=== PATIENT | female | born 1955 | race Caucasian/White ===

== ENCOUNTER 2016-05-05 12:45 | Outpatient (CLI) | payer MEDICAID | END 2016-05-05 12:46 | disposition home or self-care (01) | DX: Z00.00 Encounter for general adult medical examination without abnormal findings (principal); G62.9 Polyneuropathy, unspecified; R60.9 Edema, unspecified; Z13.29 Encounter for screening for other suspected endocrine disorder; B19.20 Unspecified viral hepatitis C without hepatic coma ==

== ENCOUNTER 2017-05-26 13:24 | Emergency (ER) | payer MEDICAID ==
[2017-05-26 13:34] VITALS: BP 124/65
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
[2017-05-26] MEDS ORDERED: oxyCOD/ACETAMIN 5 MG/325 MG TABLET PO STA (15:03)
== END 2017-05-26 15:10 | disposition home or self-care (01) ==
LOC: ED 13:24
DX: H66.92 Otitis media, unspecified, left ear (principal); H72.92 Unspecified perforation of tympanic membrane, left ear; F17.200 Nicotine dependence, unspecified, uncomplicated
CPT/HCPCS: 99283; A9270

== ENCOUNTER 2018-02-11 18:10 | Outpatient (CLI) | payer MEDICAID | END 2018-02-11 23:59 | disposition home or self-care (01) | LOC: LAB.R 18:10 | PROVIDERS: ATTEND Nurse Practitioner | DX: L08.9 Local infection of the skin and subcutaneous tissue, unspecified (principal) | CPT/HCPCS: 87070; 87075; 87076; 87205 ==

== ENCOUNTER 2018-05-04 10:17 | Outpatient (CLI) | payer MEDICAID | END 2018-05-04 10:18 | disposition home or self-care (01) | LOC: LAB.F 10:17 | DX: B19.20 Unspecified viral hepatitis C without hepatic coma (principal) ==

== ENCOUNTER 2018-05-05 14:18 | Outpatient (CLI) | payer MEDICAID | END 2018-05-05 14:19 | disposition home or self-care (01) | LOC: LAB.F 14:18 | DX: B19.20 Unspecified viral hepatitis C without hepatic coma (principal) | CPT/HCPCS: 36415; 86317; 86704; 87340; 87389 ==

== ENCOUNTER 2018-05-11 09:39 | Outpatient (CLI) | payer MEDICAID ==
[2018-05-12 12:51] LABS: HEPATITIS B SURFACE ANTIGEN NON-REACTIVE (NON-REACTIVE)
[2018-05-12 15:07] LABS: HIV AG/AB 4TH GEN NON-REACTIVE (NON-REACTIVE)
== END 2018-05-11 09:40 | disposition home or self-care (01) ==
LOC: LAB.F 09:39
PROVIDERS: ATTEND Physician Assistant
DX: B19.20 Unspecified viral hepatitis C without hepatic coma (principal)
CPT/HCPCS: 36415; 86317; 86704; 87340; 87389

== ENCOUNTER 2018-08-05 10:05 | Outpatient (CLI) | payer MEDICAID ==
[2018-08-05 17:28] LABS: ALBUMIN 4.1 g/dL (3.2-5.5); ALBUMIN/GLOBULIN RATIO 1.2 (1.0-2.2); BILIRUBIN,TOTAL 0.9 mg/dL (0.2-1.0); CALCIUM 9.4 mg/dL (8.5-10.3); CREATININE 0.9 mg/dL (0.4-1.0); TOTAL PROTEIN 7.6 g/dL (6.7-8.2)
== END 2018-08-05 10:06 | disposition home or self-care (01) ==
LOC: LAB.F 10:05
PROVIDERS: ATTEND Physician Assistant
DX: B18.2 Chronic viral hepatitis C (principal)
CPT/HCPCS: 36415; 80053; 81599; 86803; 87522

== ENCOUNTER 2018-09-13 09:57 | Outpatient (CLI) | payer MEDICAID ==
--- NOTE | 2018-09-13 11:55 | Mammography Report ---
Reason: MASTALGIA Procedure Date: 09/13/2018 Accession Number: [id number] / [id number] Procedure: DIANA - Diagnostic Dig Bilat CPT Code: FULL RESULT: EXAM: Diagnostic Dig Bilat DATE: 09/13/2018 11:41 AM CLINICAL HISTORY: Left breast pain. TECHNIQUE: (B) - Bilateral CC and MLO views were obtained. Left ML images are obtained. COMPARISON: 01/28/2011. PARENCHYMAL PATTERN: (A) - The breast(s) demonstrate(s) scattered fibroglandular densities. FINDINGS: There are no suspicious masses, calcifications, or areas of distortion. IMPRESSION: Negative examination. BI-RADS category 1. RECOMMENDATION: (ANNUAL) - Recommend routine annual screening mammography. BI-RADS CATEGORY: (1) - Negative. STANDARD QUALIFYING STATEMENTS: 1. This examination was not reviewed with the aid of Computer-Aided Detection (CAD). 2. A negative or benign imaging report should not preclude biopsy if clinically suspicious findings are present. 3. Dense breasts may obscure an underlying neoplasm. 4. This examination was reviewed with the aid of 3D breast imaging (tomosynthesis).
== END 2018-09-13 09:58 | disposition home or self-care (01) ==
LOC: DI 09:57
PROVIDERS: ATTEND Registered Nurse
DX: N64.4 Mastodynia (principal)
CPT/HCPCS: 77066

== ENCOUNTER 2018-09-20 12:36 | Outpatient (CLI) | payer MEDICAID | END 2018-09-20 12:37 | disposition home or self-care (01) | LOC: LAB.S 12:36 | PROVIDERS: ATTEND Physician Assistant | DX: Z53.9 Procedure and treatment not carried out, unspecified reason (principal) ==

== ENCOUNTER 2018-09-26 09:28 | Outpatient (CLI) | payer MEDICAID ==
[2018-09-26 17:23] LABS: BASOPHILS # (AUTO) 0.1 10^3/uL (0.0-0.1); BASOPHILS % (AUTO) 1.6 %; EOSINOPHILS # (AUTO) 0.3 10^3/uL (0.0-0.7); EOSINOPHILS % (AUTO) 5.1 %; HGB - HEMOGLOBIN 15.1 g/dL (12.0-16.0); LYMPHOCYTES # (AUTO) 1.9 10^3/uL (1.5-3.5); MEAN CORPUSCULAR HEMOGLOBIN 29.4 pg (27.0-31.0); MEAN CORPUSCULAR HGB CONC 31.2 g/dL (32.0-36.0); MEAN CORPUSCULAR VOLUME 94.2 fL (81.0-99.0); MEAN PLATELET VOLUME 11.1 fL (7.9-10.8); MONOCYTES # (AUTO) 0.6 10^3/uL (0.0-1.0); MONOCYTES % (AUTO) 10.1 %; NEUTROPHILS # (AUTO) 2.9 10^3/uL (1.5-6.6); NEUTROPHILS % (AUTO) 49.9 %; PLT - PLATELET COUNT 221 10^3/uL (130-450); RED BLOOD COUNT 5.14 10^6/uL (4.20-5.40); RED CELL DISTRIBUTION WIDTH 13.4 % (12.0-15.0); WHITE BLOOD COUNT 5.7 x10^3/uL (4.8-10.8)
[2018-09-26 17:38] LABS: ALBUMIN 3.9 g/dL (3.2-5.5); ALBUMIN/GLOBULIN RATIO 1.2 (1.0-2.2); BILIRUBIN,TOTAL 0.7 mg/dL (0.2-1.0); CALCIUM 9.3 mg/dL (8.5-10.3); TOTAL PROTEIN 7.2 g/dL (6.7-8.2)
[2018-09-26 17:42] LABS: CHOLESTEROL 176 mg/dL; HDL CHOLESTEROL 58 mg/dL; LDL CHOLESTEROL,CALCULATED 105 mg/dL; LDL/HDL RATIO 1.8 (<4.4); VLDL CHOLESTEROL 13 mg/dL
[2018-09-26 17:56] LABS: HB2 TOTAL 16.5 g/dL; HEMOGLOBIN A1C 0.66 g/dL; HEMOGLOBIN A1C % 5.8 % (4.6-6.2)
[2018-09-27 12:01] LABS: HEPATITIS C ANTIBODY REACTIVE (NON-REACTIVE)
[2018-09-30 07:56] LABS: HCV RNA QNT <1.18 NOT DETECTED Log IU/mL (NOT DETECTED); HCV RNA QUANT RT PCR <15 NOT DETECTED IU/mL (NOT DETECTED)
== END 2018-09-26 09:29 | disposition home or self-care (01) ==
LOC: LAB.S 09:28
PROVIDERS: ATTEND Physician Assistant
DX: B18.2 Chronic viral hepatitis C (principal); R73.01 Impaired fasting glucose; Z13.29 Encounter for screening for other suspected endocrine disorder; Z81.1 Family history of alcohol abuse and dependence; F17.209 Nicotine dependence, unspecified, with unspecified nicotine-induced disorders
CPT/HCPCS: 36415; 80053; 80061; 83036; 83721; 84443; 85025; 86803

== ENCOUNTER 2018-12-30 13:46 | Outpatient (CLI) | payer MEDICAID | END 2018-12-30 13:47 | disposition home or self-care (01) | LOC: LAB.S 13:46 | PROVIDERS: ATTEND Physician Assistant | DX: B18.2 Chronic viral hepatitis C (principal); B19.20 Unspecified viral hepatitis C without hepatic coma | CPT/HCPCS: 36415; 80053; 87389; 87902 ==

== ENCOUNTER 2019-01-03 13:15 | Emergency (ER) | payer MEDICAID ==
[2019-01-03 13:28] VITALS: BP 150/80
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
[2019-01-03] MEDS ORDERED: HYDROcod/ACETAM 5/325 MG TABLET PO STA (15:46)
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
== END 2019-01-03 16:49 | disposition home or self-care (01) ==
LOC: ED 13:15
DX: S00.83XA Contusion of other part of head, initial encounter (principal); H43.392 Other vitreous opacities, left eye; W22.8XXA Striking against or struck by other objects, initial encounter; F17.200 Nicotine dependence, unspecified, uncomplicated; B18.2 Chronic viral hepatitis C
CPT/HCPCS: 36415; 70450; 70480; 80053; 86803; 87389; 99282; 99284; A9270

== ENCOUNTER 2019-01-03 14:38 | Outpatient (CLI) | payer MEDICAID ==
[2019-01-03 15:17] LABS: ALBUMIN 4.2 g/dL (3.2-5.5); ALBUMIN/GLOBULIN RATIO 1.3 (1.0-2.2); BILIRUBIN,TOTAL 0.9 mg/dL (0.2-1.0); CALCIUM 9.3 mg/dL (8.5-10.3); CREATININE 0.9 mg/dL (0.4-1.0); TOTAL PROTEIN 7.5 g/dL (6.7-8.2)
[2019-01-04 11:40] LABS: HEPATITIS C ANTIBODY REACTIVE (NON-REACTIVE)
[2019-01-04 15:26] LABS: HIV AG/AB 4TH GEN NON-REACTIVE (NON-REACTIVE)
[2019-01-05 19:36] LABS: HCV RNA QNT 1.32 Log IU/mL (NOT DETECTED); HCV RNA QUANT RT PCR 21 IU/mL (NOT DETECTED)
== END 2019-01-03 14:39 | disposition home or self-care (01) ==
LOC: LAB 14:38
PROVIDERS: ATTEND Physician Assistant
DX: B18.2 Chronic viral hepatitis C (principal); B19.20 Unspecified viral hepatitis C without hepatic coma
CPT/HCPCS: 36415; 80053; 86803; 87389

== ENCOUNTER 2020-10-15 08:00 | Outpatient (CLI) | payer MEDICAID ==
[2020-10-15 20:13] LABS: BASOPHILS # (AUTO) 0.1 10^3/uL (0.0-0.1); BASOPHILS % (AUTO) 1.2 %; EOSINOPHILS # (AUTO) 0.3 10^3/uL (0.0-0.7); EOSINOPHILS % (AUTO) 4.1 %; HCT - HEMATOCRIT 49.2 % (37.0-47.0); HGB - HEMOGLOBIN 15.7 g/dL (12.0-16.0); LYMPHOCYTES # (AUTO) 1.9 10^3/uL (1.5-3.5); LYMPHOCYTES % (AUTO) 31.2 %; MEAN CORPUSCULAR HGB CONC 31.9 g/dL (32.0-36.0); MEAN CORPUSCULAR VOLUME 93.9 fL (81.0-99.0); MEAN PLATELET VOLUME 11.9 fL (7.9-10.8); MONOCYTES # (AUTO) 0.6 10^3/uL (0.0-1.0); MONOCYTES % (AUTO) 9.6 %; NEUTROPHILS # (AUTO) 3.2 10^3/uL (1.5-6.6); NEUTROPHILS % (AUTO) 53.4 %; PLT - PLATELET COUNT 105 10^3/uL (130-450); RED BLOOD COUNT 5.24 10^6/uL (4.20-5.40); RED CELL DISTRIBUTION WIDTH 13.4 % (12.0-15.0)
[2020-10-15 20:21] LABS: SLIDE REVIEW? Indicated
[2020-10-15 20:29] LABS: ALBUMIN 4.5 g/dL (3.2-5.5); ALBUMIN/GLOBULIN RATIO 1.4 (1.0-2.2); BILIRUBIN,TOTAL 1.1 mg/dL (0.2-1.0); CALCIUM 9.6 mg/dL (8.5-10.3); CREATININE 0.8 mg/dL (0.4-1.0); POTASSIUM 4.5 mmol/L (3.5-5.0); TOTAL PROTEIN 7.8 g/dL (6.7-8.2)
[2020-10-15 21:00] LABS: RBC MORPHOLOGY (MULTIPLE) NORMAL APPEARANCE (NORMAL)
[2020-10-15 21:01] LABS: PLATELET ESTIMATE, MANUAL NORMAL (130-450,000) (NORMAL); PLATELET MORPHOLOGY PLATELET CLUMPING (NORMAL)
== END 2020-10-15 23:59 | disposition home or self-care (01) ==
LOC: LAB.S 08:00
PROVIDERS: ATTEND Emergency Medicine
DX: K92.2 Gastrointestinal hemorrhage, unspecified (principal)
CPT/HCPCS: 36415; 80053; 83690; 85025; 85610

== ENCOUNTER 2020-11-22 14:15 | Outpatient (CLI) | payer MEDICAID ==
[2020-11-22] MEDS ORDERED: IOVERSOL 320 100 ML VIAL IVP ONE (14:38)
[2020-11-22] MEDS ORDERED: IOVERSOL 320 50 ML VIAL ONE (14:39)
[2020-11-22 15:28] LABS: CREATININE 0.7 mg/dL (0.4-1.0)
== END 2020-11-22 14:16 | disposition home or self-care (01) ==
LOC: LAB 14:15
PROVIDERS: ATTEND Surgery
DX: R10.32 Left lower quadrant pain (principal); K92.2 Gastrointestinal hemorrhage, unspecified
CPT/HCPCS: 36415; 82565

== ENCOUNTER 2021-05-03 13:58 | Outpatient (CLI) | payer MEDICAID ==
--- NOTE | 2021-05-03 15:20 | CT Report ---
PROCEDURE: Low Dose Lung Cancer Screen INDICATIONS: TOBACCO USE TECHNIQUE: Noncontrast low-dose images were acquired from the pulmonary apices to the posterior costophrenic ang les. Multiplanar MIP reformats were then acquired. For radiation dose reduction, the following was used: automated exposure control, adjustment of mA and/or kV according to patient size. COMPARISON: Correlation is made with prior chest plain film radiograph 02/13/2014 FINDINGS: Image quality: Excellent. Lungs and pleura: No pulmonary nodules are seen. No focal infiltrates are seen. The central airways are patent. No pleural effusions or pneumothorax can be seen. Mediastinum: Heart size is normal. No pericardial effusion. No mediastinal adenopathy by size crit eria. Thoracic aorta and central pulmonary arteries are normal in size. Esophagus is normal in keit lizzeth. There is a small hiatal hernia. Bones and chest wall: No suspicious bony lesions. Age-appropriate degenerative changes are seen. N o vertebral body compression fractures. No axillary or supraclavicular adenopathy by size criteria. The thyroid is normal in size and there are no incidental findings. Abdomen: Visualized upper abdomen solid organs and bowel loops appear normal in the absence of contr ast. IMPRESSION: No pulmonary nodules are seen. Incidental note is made of: Small hiatal hernia Lung RADS category 1. Recommend annual low-dose CT chest screening examinations, as long as the patie nt meets the published screening criteria. Reviewed by: Humza Vogel MD on 05/03/2021 2:19 PM MARJORIE Approved by: Humza Vogel MD on 05/03/2021 2:19 PM MARJORIE Station ID: [id number]
== END 2021-05-03 13:59 | disposition home or self-care (01) ==
LOC: DI 13:58
PROVIDERS: ATTEND Registered Nurse
DX: Z12.2 Encounter for screening for malignant neoplasm of respiratory organs (principal); F17.209 Nicotine dependence, unspecified, with unspecified nicotine-induced disorders

== ENCOUNTER 2022-04-30 10:39 | Outpatient (CLI) | payer MEDICAID ==
--- NOTE | 2022-04-30 11:18 | CT Report ---
PROCEDURE: Low Dose Lung Cancer Screen INDICATIONS: TOBACCO USE DISORDER TECHNIQUE: Noncontrast low-dose axial images were acquired from the pulmonary apices to the posterior costophren ic angles. Multiplanar MIP reformats were then reconstructed. For radiation dose reduction, the follo wing was used: automated exposure control, adjustment of mA and/or kV according to patient size. COMPARISON: 05/03/2021 FINDINGS: Image quality: Good, allowing for low radiation dose Lungs and pleura:No consolidation or pleural effusion. Scattered scarring and atelectasis. No new or enlarging nodule. A few micronodules are stable, for example in the right . Mediastinum, heart, and esophagus: Mild thickening of the distal esophagus. Coronary calcifications. Normal heart size overall. Chest wall and thyroid: Unremarkable Upper abdomen: Limited low-dose images, no gross abnormality is identified. Bones: No acute or suspicious osseous finding. IMPRESSION: Lung RADS 2: Continue annual screening. Reviewed by: Shola Dahl MD on 04/30/2022 11:16 AM PDT Approved by: Shola Dahl MD on 04/30/2022 11:16 AM PDT Station ID: [id number]
== END 2022-04-30 10:40 | disposition home or self-care (01) ==
LOC: DI 10:39
PROVIDERS: ATTEND Registered Nurse
DX: Z12.2 Encounter for screening for malignant neoplasm of respiratory organs (principal); F17.290 Nicotine dependence, other tobacco product, uncomplicated

== ENCOUNTER 2022-07-17 14:14 | Outpatient (CLI) | payer MEDICAID ==
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
== END 2022-07-17 23:59 | disposition home or self-care (01) ==
LOC: DI.S 14:14
PROVIDERS: ATTEND Physician Assistant Medical
DX: M19.011 Primary osteoarthritis, right shoulder (principal)

== ENCOUNTER 2022-11-16 08:00 | Outpatient (CLI) | payer MEDICAID ==
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
== END 2022-11-16 23:59 | disposition home or self-care (01) ==
LOC: DI.WOS 08:00
PROVIDERS: ATTEND Orthopaedic Surgery
DX: S52.502D Unspecified fracture of the lower end of left radius, subsequent encounter for closed fracture with routine healing (principal)

== ENCOUNTER 2022-12-17 08:00 | Outpatient (CLI) | payer MEDICAID ==
--- NOTE | 2022-12-17 14:41 | XRAY Report ---
PROCEDURE: Wrist 3 View LT INDICATIONS: LEFT WRIST FRACTURE TECHNIQUE: 3 views of the wrist were acquired. COMPARISON: 11/16/2022. FINDINGS: Bones: Healing distal radius fracture with articular surface involvement and 2 mm step-off of the ar ticular surface. The bones are demineralized likely due to disuse osteopenia. Callus formation is not ed within the fracture indicating healing.. No suspicious bony lesions. Soft tissues: No suspicious soft tissue calcifications or masses. IMPRESSION: 1. Comminuted distal radius fracture. 2. Articular surface involvement of the fracture with 2 mm step-off of the articular surface which wa s not previously present. 3. Disuse osteopenia. Reviewed by: Jose Grossman on 12/17/2022 2:40 PM PDT Approved by: Jose Grossman on 12/17/2022 2:40 PM PDT Station ID: [id number]
== END 2022-12-17 23:59 | disposition home or self-care (01) ==
LOC: DI.WOS 08:00
PROVIDERS: ATTEND Orthopaedic Surgery
DX: S52.502D Unspecified fracture of the lower end of left radius, subsequent encounter for closed fracture with routine healing (principal); M85.88 Other specified disorders of bone density and structure, other site

== ENCOUNTER 2023-06-19 15:59 | Emergency (ER) | payer MEDICARE, MEDICAID ==
--- NOTE | 2023-06-19 16:17 | ED Physician Documentation ---
History of Present Illness - Stated complaint Stated Complaint: L SIDE PX/LEG PX - Chief complaint Chief Complaint: Ext Problem - History obtained from History obtained from: Patient, Family - Additonal information Additional information: Relatively healthy 67-year-old woman who still works in [email or web address] has had left lower quadrant pain on and off for about a year. There is no particular pattern to it, but today the pain is much worse and radiates into the back and left leg. She denies weakness, numbness, tingling, saddle anesthesia, fevers, bowel or bladder incontinence with this. Pain is intolerable though. She is never had it like this before. It is worse with sitting, position changes. Pain was too severe for her to drive today. 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) HEENT: Tonsil/Adenoidectomy - Present Medications Home Medications: Ambulatory Orders Medication Instructions Recorded Confirmed Amox/Clav 875/125 [Augmentin] 1 each PO TID #21 tablet 06/19/23 HYDROcod/ACETAM 5/325 [Ideal 5/325] 1 - 2 tab PO Q6H PRN #15 tablet 06/19/23 polyethylene glycoL 3350(BULK) 17 gm PO DAILY PRN #1 each 06/19/23 [Miralax] predniSONE [Deltasone] 20 mg PO [id number] #21 tab 06/19/23 - Allergies Allergies/Adverse Reactions: Allergies Allergy/AdvReac Type Severity Reaction Status Date / Time erythromycin base Allergy Mild Rash Verified 06/19/23 16:03 [Erythromycin Base] codeine AdvReac Unknown Verified 06/19/23 16:03 - Social History Does the pt smoke?: Yes Smoking Status: Current every day smoker Does the pt drink ETOH?: No Does the pt have substance abuse?: No - Immunizations Immunizations are current?: No Immunizations: TDAP >10years/unknown - POLST Patient has POLST: No PD ED PE NORMAL - Vitals Vital signs reviewed: Yes - General General: Alert and oriented X 3, Other (She appears uncomfortable and winces with motion.) - Abdomen Abdomen: Normal bowel sounds, Soft, Non tender - Back Back: No spinal TTP - Derm Derm: Normal color, Warm and dry - Extremities Extremities: No edema, No calf tenderness / cord, Other (The patient has equal and normal Achilles and patellar reflexes bilaterally. Normal sensation in all areas of the legs. Patient denies saddle anesthesia. Normal strength in flexion-extension at the ankles, knees, and flexion of the hips.) - Neuro Neuro: Alert and oriented X 3, Normal speech Results - Vitals Vitals: Vital Signs - 24 hr 06/19/23 06/19/23 06/19/23 16:03 16:50 17:26 Temperature 36.8 C Heart Rate 86 82 69 Respiratory 16 18 14 Rate Blood Pressure 160/90 H 124/25 L 144/76 H O2 Saturation 98 95 92 Oxygen O2 Source Room air - Labs Labs: Laboratory Tests 06/19/23 06/19/23 16:35 16:35 WBC 6.2 RBC 4.78 Hgb 13.8 Hct 43.3 MCV 90.6 MCH 28.9 MCHC 31.9 L RDW 13.3 Plt Count 212 MPV 10.9 H Neut # (Auto) 3.6 Lymph # (Auto) 1.7 [place] # (Auto) 0.5 Eos # (Auto) 0.3 Baso # (Auto) 0.1 Absolute Nucleated RBC 0.00 Nucleated RBC % 0.0 Sodium 139 Potassium 4.3 Chloride 105 Carbon Dioxide 27 Anion Gap 7.0 BUN 14 Creatinine 0.8 Estimated GFR (MDRD) 72 L Glucose 169 H Calcium 9.6 Total Bilirubin 0.7 AST 16 ALT 11 Alkaline Phosphatase 67 Total Protein 6.5 Albumin 4.2 Globulin 2.3 Albumin/Globulin Ratio 1.8 - Rads (name of study) CT of the abdomen pelvis showing mild diverticulitis, lumbar spine degenerative changes, and other incidental findings Relevant Findings:: Final report received, EMP independent interpretation of test CT of the lumbar spine demonstrates multiple degenerative changes. Relevant Findings:: Final report received, EMP independent interpretation of test PD Medical Decision Making - ED course ED course: 67-year-old woman presents with ongoing left lower quadrant pain now with more sciatic type symptoms. Differential would include vascular emergency, divertic ulitis, sciatica. Nothing in the history or physical to suggest spinal cord infection. Workup in the emergency department demonstrates normal CBC and CMP. CT scanning of the back and abdomen showing mild diverticulitis and significant lumbar degenerative disease. After the administration of IV Toradol and Dilaudid here she was feeling much better and was nontender on recheck. Departure - Departure Disposition: 01 Home, Self Care Clinical Impression: Diverticulitis, Sciatica of left side Condition: Good Record reviewed to determine appropriate education?: Yes Instructions: ED Sciatica, ED Diverticulitis, Diet Low Residue, Diet Clear Liquid Dc Prescriptions: Amox/Clav 875/125 [Augmentin] 1 each PO TID #21 tablet predniSONE [Deltasone] 20 mg PO [id number] #21 tab polyethylene glycoL 3350(BULK) [Miralax] 17 gm PO DAILY PRN #1 each PRN Reason: Constipation HYDROcod/ACETAM 5/325 [Ideal 5/325] 1 - 2 tab PO Q6H PRN #15 tablet PRN Reason: Pain Comments: You were seen today for left lower abdominal pain, your blood work was pretty normal but the CAT scans did show a lot of arthritis in your back and a mild case of diverticulitis. I would like you to do the clear liquid diet for 1 day, and then the low residue diet for 1 more day. See the attached instructions. Follow-up with your primary care physician this week for recheck. You probably will need a colonoscopy, it needs to be delayed for a few months for everything to heal, but after that it should be scheduled for sometime in the summer. You can get a referral for that from your primary care physician as well. I sent your prescriptions electronically to the [facility] in [place]. I am prescribing a short course of narcotic pain medication for you. These are potentially dangerous and addictive medications that should be used carefully. These medications may constipate you. Take an meja-wsl-sgvpmel stool softener (docusate) twice daily with plenty of water while taking these medications. If you go 24 hours without a bowel movement, take awkw-yzb-wtgssdd miralax, per package instructions. Do not drink or drive while taking these medications. If you received narcotic or sedating medications while in the emergency department, do not drive for 24 hours. Store this medication in a safe, secure place and out of reach of children. It is a violation of federal law to give or sell this medication to another person or to use in a manner other than prescribed. The ED will not refill narcotic prescriptions, including prescriptions lost or stolen. To dispose of unwanted medications: 1. [facility] provides a drop box for medication in pill form only (no liquids) 8:00 am to 4:30 p.m. Wednesday-Wednesday in the lobby of the [facility] [place], [address] Empty pills into ziplock bag before disposal. Call [phone] for information. 2.[employer] is a free service available to all [facility] residents. Go to [email or web address] Note that many narcotic pain relievers also contain Tylenol/acetaminophen. Please ensure that your total dose of acetaminophen from all sources does not exceed 3 g (3000 mg) per day. Forms: PCP List
[2023-06-19 16:42] LABS: BASOPHILS # (AUTO) 0.1 10^3/uL (0.0-0.1); BASOPHILS % (AUTO) 1.1 %; EOSINOPHILS # (AUTO) 0.3 10^3/uL (0.0-0.7); EOSINOPHILS % (AUTO) 5.5 %; HCT - HEMATOCRIT 43.3 % (37.0-47.0); HGB - HEMOGLOBIN 13.8 g/dL (12.0-16.0); LYMPHOCYTES # (AUTO) 1.7 10^3/uL (1.5-3.5); LYMPHOCYTES % (AUTO) 26.6 %; MEAN CORPUSCULAR HEMOGLOBIN 28.9 pg (27.0-31.0); MEAN CORPUSCULAR HGB CONC 31.9 g/dL (32.0-36.0); MEAN CORPUSCULAR VOLUME 90.6 fL (81.0-99.0); MEAN PLATELET VOLUME 10.9 fL (7.9-10.8); MONOCYTES # (AUTO) 0.5 10^3/uL (0.0-1.0); MONOCYTES % (AUTO) 7.9 %; NEUTROPHILS # (AUTO) 3.6 10^3/uL (1.5-6.6); NEUTROPHILS % (AUTO) 58.6 %; PLT - PLATELET COUNT 212 10^3/uL (130-450); RED BLOOD COUNT 4.78 10^6/uL (4.20-5.40); RED CELL DISTRIBUTION WIDTH 13.3 % (12.0-15.0); WHITE BLOOD COUNT 6.2 x10^3/uL (4.8-10.8)
[2023-06-19] MEDS: KETOROLAC 15 MG/ML VIAL IVP STA (16:43)
[2023-06-19] MEDS: HYDROmorphone 1 MG/ML CARPUJECT IVP STA (16:43)
[2023-06-19 16:58] LABS: ALBUMIN 4.2 g/dL (3.2-5.5); BILIRUBIN,TOTAL 0.7 mg/dL (0.2-1.0); CALCIUM 9.6 mg/dL (8.5-10.3); POTASSIUM 4.3 mmol/L (3.5-4.5)
[2023-06-19 17:03] LABS: ALBUMIN/GLOBULIN RATIO 1.8 (1.0-2.2); CREATININE 0.8 mg/dL (0.6-1.3); TOTAL PROTEIN 6.5 g/dL (6.4-8.9)
[2023-06-19] MEDS ORDERED: iohexoL-300 100 ML VIAL ONE (17:49)
--- NOTE | 2023-06-19 18:23 | CT Report ---
PROCEDURE: Abdomen/Pelvis W INDICATIONS: back/abd pain CONTRAST: 100ml omni 300 TECHNIQUE: After the administration of intravenous contrast, a CT scan of the abdomen and pelvis was performed. Images were recorded and evaluated at appropriate window settings. Reformats: coronal and sagittal. F or radiation dose reduction, the following was used: automated exposure control, adjustment of mA and /or kV according to patient size. COMPARISON: Correlation is made with the accompanying imaging. FINDINGS: Image quality: Diagnostic. Lower chest: Likely dependent atelectasis can be seen within the left lower lobe. A small hiatal jacob ia is incidentally noted. Liver: No solid mass. Gallbladder and biliary tree: Within normal limits. Spleen: No splenomegaly. Pancreas: No pancreatic ductal dilation. Adrenals: No adrenal nodule. Kidneys and ureters: No hydronephrosis. No renal cystic lesion which requires follow up. No solid mas s. Stomach, bowel and peritoneum: A normal appendix is seen, which is oriented superiorly, as on series 3 image 61. There is an apparent duodenal diverticulum, as on series 3 image 55 and on series 5 image 61 and on s eries 5 image 83.. There is mild to moderate colonic wall thickening seen within the proximal sigmoid colon. Diverticula formation can be seen within this region. No findings of perforation or abscess can be seen. No sign ificant free intraperitoneal fluid can be seen. The more proximal colon is within normal limits. No dilated loops of small bowel are seen. Lymph nodes: No central or retroperitoneal adenopathy. Vessels: No infrarenal aortic aneurysm. Atherosclerotic calcification is seen. PELVIS Reproductive organs: The uterus demonstrates an unremarkable appearance for age. No adnexal masses ar e seen. Bladder: No abnormal wall thickening, accounting for underdistention. Pelvic lymph nodes: No pelvic adenopathy by size criteria. Bones: Generalized lumbar spine degenerative change can be seen, including a central disc protrusion at the L1-L2 level. Please see the accompanying lumbar spine CT report. Other: No significant ventral or inguinal hernia. IMPRESSION: Likely mild diverticulitis, without findings of perforation or abscess. Lumbar spine degenerative change. Additional findings: Small hiatal hernia Likely right lower lobe atelectasis Apparent duodenal diverticulum Normal appendix Reviewed by: Humza Vogel MD on 06/19/2023 5:22 PM [facility] Approved by: Humza Vogel MD on 06/19/2023 5:22 PM [facility] Station ID: [id number]
--- NOTE | 2023-06-19 18:27 | CT Report ---
PROCEDURE: Lumbar Spine WO INDICATIONS: back/abd pain TECHNIQUE: Noncontrast 3 mm thick sections acquired from the T12 level to the sacrum. Sagittal and coronal refo rmats were constructed. For radiation dose reduction, the following was used: automated exposure co ntrol, adjustment of mA and/or kV according to patient size. COMPARISON: Correlation is made with the accompanying imaging. FINDINGS: Image quality: Excellent. Bones: No acute vertebral body compression fractures. No suspicious lytic or blastic bony lesions. Central spinal caliber is of normal overall caliber. No pars defects. Mild levoconvex scoliotic curvature is seen. Minimal retrolisthesis is seen at the L1-L2 level. Mini mal anterolisthesis is seen at L4-L5. T12-L1: Moderate loss of disc height is seen. Vacuum disc phenomenon is seen at this level. Mild d isc bulge is seen. No significant neural foraminal or central canal narrowing can be seen. L1-L2: Moderate loss of disc height is seen. Vacuum disc phenomenon is seen at this level. Endp late irregularity and sclerosis can be seen. Moderate disc bulge is seen, which is eccentric to the r ight. Bridging endplate osteophytes are seen on the right, as on series 11 image 29. There is a centr al disc protrusion seen at this level, as on series 7 image 28. There is at least moderate bilateral neuroforaminal narrowing seen, left worse than right. Moderate central canal narrowing is seen. L2-L3: The disc height is well-preserved. Mild to moderate disc bulge is seen. Moderate bilateral neural foraminal narrowing is seen. Mild central canal narrowing is seen. L3-L4: The disc height is well-preserved. Moderate disc bulge is seen at this level. There is a mild central disc protrusion. Mild facet hypertrophy is seen. There is mild right-sided and moderate left-sided neuroforaminal narrowing. Moderate central canal narrowing is seen. L4-L5: Minimal loss of disc height is seen. Moderate disc bulge is seen, which is eccentric to the left. There is moderate right-sided and prominent left-sided facet hypertrophy. Moderate bilateral ne uroforaminal narrowing can be seen, left worse than right. At least moderate central canal narrowing is seen. L5-S1: Minimal loss of disc height is seen. Mild disc bulge is seen. Mild to moderate facet hypert rophy is seen. There is moderate left-sided and mild right-sided neuroforaminal narrowing. No signifi cant central canal narrowing is seen. Soft tissues: No retroperitoneal masses or hematomas. Visualized aorta is normal in caliber. Ather osclerotic change is seen. IMPRESSION: Multiple levels of lumbar spine degenerative change can be seen, which are overall worst at the L1-L2 level. Reviewed by: Humza Vogel MD on 06/19/2023 5:25 PM [facility] Approved by: Humza Vogel MD on 06/19/2023 5:25 PM [facility] Station ID: [id number]
[2023-06-19] MEDS: iohexoL-300 100 ML VIAL IVP ONE (18:33)
[2023-06-19 18:45] VITALS: BP 147/94; O2SAT 100
[2023-06-19] MEDS: HYDROcod/ACET 5/325 Prepack 4 PO STA (18:46)
[2023-06-19] MEDS: AMOX/CLAV 875 MG/125 MG TABLET PO STA (18:46)
[2023-06-19] MEDS: predniSONE 20 MG TABLET PO STA (18:46)
== END 2023-06-19 19:08 | disposition home or self-care (01) ==
LOC: ED 15:59
DX: K57.32 Diverticulitis of large intestine without perforation or abscess without bleeding (principal); M47.816 Spondylosis without myelopathy or radiculopathy, lumbar region; M54.42 Lumbago with sciatica, left side; F17.200 Nicotine dependence, unspecified, uncomplicated
CPT/HCPCS: 36415; 72131; 74177; 80053; 85025; 96374; 99284; 99285; A9270; J1170; J7512; Q9967

== ENCOUNTER 2023-06-23 16:24 | Outpatient (CLI) | payer MEDICARE, MEDICAID | END 2023-06-23 23:59 | disposition critical access hospital (66) | LOC: EMS 16:24 | DX: M54.32 Sciatica, left side (principal); R26.2 Difficulty in walking, not elsewhere classified | CPT/HCPCS: A0425; A0429 ==

== ENCOUNTER 2023-06-23 16:50 | Emergency (ER) | payer MEDICARE, MEDICAID ==
--- NOTE | 2023-06-23 18:13 | ED Physician Documentation ---
PD HPI ABD PAIN - Stated complaint Stated Complaint: LEG PX - Chief complaint Chief Complaint: Back Pain - History obtained from History obtained from: Patient, EMS - History of Present Illness Timing - details: Gradual onset Pain level max: 8 Pain level now: 8 Quality: Aching, Pain Location: LLQ Associated symptoms: No: Fever, Nausea, Vomiting, Hematemesis, Diarrhea, Constipation, Melena, Hematochezia, Dysuria Recently seen: Not recently seen - Additional information Additional information: Patient is a 67-year-old female who presents to the emergency department with worsening left lower quadrant abdominal pain. She states that she was seen here 4 to 5 days ago and diagnosed with diverticulitis and sciatica. She states that the sciatica pain has been worsening today the left lower quadrant abdominal pain has also been worsening today. No fevers. No chills. Worse with movement, better with rest. No diarrhea or constipation. No blood in the stool. She has taken Vicodin for pain at home. No numbness or tingling in the leg. No loss of bowel or bladder control. Does not use IV drugs. No fevers. No falls. No trauma. 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) HEENT: Tonsil/Adenoidectomy - Present Medications Home Medications: Ambulatory Orders Medication Instructions Recorded Confirmed Amox/Clav 875/125 [Augmentin] 1 each PO TID #21 tablet 06/19/23 HYDROcod/ACETAM 5/325 [[place] 5/325] 1 - 2 tab PO Q6H PRN #15 tablet 06/19/23 polyethylene glycoL 3350(BULK) 17 gm PO DAILY PRN #1 each 06/19/23 [Miralax] predniSONE [Deltasone] 20 mg PO [id number] #21 tab 06/19/23 Meloxicam [Mobic] 7.5 mg PO BID PRN #20 tablet 06/23/23 oxyCODONE [Roxicodone] 5 - 10 mg PO Q6H PRN #20 tablet 06/23/23 MDD 6 - Allergies Allergies/Adverse Reactions: Allergies Allergy/AdvReac Type Severity Reaction Status Date / Time erythromycin base Allergy Mild Rash Verified 06/23/23 16:54 [Erythromycin Base] codeine AdvReac Unknown Verified 06/23/23 16:54 - Social History Does the pt smoke?: Yes Smoking Status: Current every day smoker Does the pt drink ETOH?: No Does the pt have substance abuse?: No - Immunizations Immunizations are current?: No Immunizations: TDAP >10years/unknown - POLST Patient has POLST: No PD ED PE NORMAL - Vitals Vital signs reviewed: Yes - General General: Alert and oriented X 3, No acute distress - HEENT HEENT: PERRL, Moist mucous membranes - Neck Neck: Supple, no meningeal sign, No bony TTP - Cardiac Cardiac: RRR, Strong equal pulses - Respiratory Respiratory: No respiratory distress, Clear bilaterally - Abdomen Abdomen: Soft, Non distended, Other - Back Back: No spinal TTP (No midline tenderness to palpation or percussion. No step- off or deformity.) - Derm Derm: Warm and dry - Extremities Extremities: No edema, No calf tenderness / cord - Neuro Neuro: Alert and oriented X 3, No motor deficit, No sensory deficit, Other (Normal bilateral lower extremity patellar and ankle jerk reflexes. Normal great toe extension bilaterally. no saddle anesthesia) - Psych Psych: Normal mood, Normal affect Results - Vitals Vitals: Vital Signs - 24 hr 06/23/23 06/23/23 06/23/23 16:58 19:26 21:31 Temperature 36.6 C Heart Rate 87 98 90 Respiratory 19 18 16 Rate Blood Pressure 142/87 H 154/89 H 166/92 H O2 Saturation 98 97 98 Oxygen O2 Source Room air - Labs Labs: Laboratory Tests 06/23/23 06/23/23 06/23/23 19:13 19:13 19:37 WBC 15.0 H RBC 5.38 Hgb 15.8 Hct 48.3 H MCV 89.8 MCH 29.4 MCHC 32.7 RDW 13.5 Plt Count 264 MPV 11.1 H Neut # (Auto) 11.5 H Lymph # (Auto) 1.9 [place] # (Auto) 1.3 H Eos # (Auto) 0.0 Baso # (Auto) 0.1 Absolute Nucleated RBC 0.00 Nucleated RBC % 0.0 Sodium 138 Potassium 3.8 Chloride 101 Carbon Dioxide 30 Anion Gap 7.0 BUN 18 Creatinine 0.8 Estimated GFR (MDRD) 72 L Glucose 125 H Calcium 9.4 Total Bilirubin 0.4 AST 12 ALT 12 Alkaline Phosphatase 68 Total Protein 6.6 Albumin 4.2 Globulin 2.4 Albumin/Globulin Ratio 1.8 Lipase 18 Urine Color DARK YELLOW Urine Clarity CLEAR Urine pH 6.5 Ur Specific [place] 1.025 Urine Protein NEGATIVE Urine Glucose (UA) NEGATIVE Urine Ketones NEGATIVE Urine Occult Blood NEGATIVE Urine Nitrite NEGATIVE Urine Bilirubin NEGATIVE Urine Urobilinogen 0.2 (NORMAL) Ur Leukocyte Esterase NEGATIVE Ur Microscopic Review NOT INDICATED Urine Culture Comments NOT INDICATED - Rads (name of study) CT abdomen and pelvis Relevant Findings:: Final report received, See rad report PD Medical Decision Making - ED course Complexity details: reviewed results, re-evaluated patient, considered differential (No cauda equina, no spinal epidural abscess, no fracture, no aortic dissection or evidence of aneursym rupture), d/w patient ED course: 67-year-old female presents to the emergency department with worsening left sided sciatica pain. Also some left lower quadrant abdominal pain. Had been treated for diverticulitis [address] scan does not show any worsening of the diverticulitis and the colonic thickening appears to have resolved. She had a CT scan of her lumbar spine 4 days ago as well. There is no neurological deficits. No evidence of cauda equina, epidural abscess. Pain well-controlled in the emergency department. We will prescribe oxycodone for pain at home. Continue the steroids. We will give her a walker to help take pressure off of her back when she ambulates. Recommend that she follow-up closely with her doctor for further care. Patient counseled regarding signs and symptoms for which I believe and urgent re-evaluation would be necessary. Patient with good understanding of and agreement to plan and is comfortable going home at this time This document was made in part using voice recognition software. While efforts are made to proofread this document, sound alike and grammatical errors may occur. Patient was also given a dose of IV Dilaudid here. Departure - Departure Disposition: 01 Home, Self Care Clinical Impression: Sciatica Qualifiers: Laterality: left Qualified Code(s): M54.32 - Sciatica, left side Condition: Good Instructions: ED Sciatica Follow-Up: your,doctor in 3-5 days [Other] Prescriptions: Meloxicam [Mobic] 7.5 mg PO BID PRN #20 tablet PRN Reason: Pain oxyCODONE [Roxicodone] 5 - 10 mg PO Q6H PRN #20 tablet MDD 6 PRN Reason: pain Comments: Continue the medications as previously prescribed. Follow-up with your doctor for further care. Your CT scan shows a resolution of your diverticulitis, however please finish the current antibiotics. Your prescriptions were sent to [facility] in [place]. I am prescribing a short course of narcotic pain medication for you. These are potentially dangerous and addictive medications that should be used carefully. These medications may constipate you. Take an yuud-dba-xjeyjek stool softener (docusate) twice daily with plenty of water while taking these medications. If you go 24 hours without a bowel movement, take luha-ojy-etbeaxa miralax, per [facility] instructions. Do not drink or drive while taking these medications. If you received narcotic or sedating medications while in the emergency department, do not drive for 24 hours. Store this medication in a safe, secure place and out of reach of children. It is a violation of federal law to give or sell this medication to another person or to use in a manner other than prescribed. The ED will not refill narcotic prescriptions, including prescriptions lost or stolen. To dispose of unwanted medications: 1. [facility] at [address] in [place] has a medication drop box. They accept prescription medications (in pill form) Wednesday through Wednesday 9:00 a.m. to 5:00 p.m. 2. [facility] accepts prescription medications (in pill form only) for disposal year round. Call for more information. 3. Contact the [facility] for the next [facility] sponsored prescription drug collection event. , [phone], or [phone]; Discharge Date/Time: 06/23/23 21:31
[2023-06-23 19:17] LABS: BASOPHILS # (AUTO) 0.1 10^3/uL (0.0-0.1); BASOPHILS % (AUTO) 0.4 %; EOSINOPHILS % (AUTO) 0.1 %; HCT - HEMATOCRIT 48.3 % (37.0-47.0); HGB - HEMOGLOBIN 15.8 g/dL (12.0-16.0); LYMPHOCYTES # (AUTO) 1.9 10^3/uL (1.5-3.5); LYMPHOCYTES % (AUTO) 12.8 %; MEAN CORPUSCULAR HEMOGLOBIN 29.4 pg (27.0-31.0); MEAN CORPUSCULAR HGB CONC 32.7 g/dL (32.0-36.0); MEAN CORPUSCULAR VOLUME 89.8 fL (81.0-99.0); MEAN PLATELET VOLUME 11.1 fL (7.9-10.8); MONOCYTES # (AUTO) 1.3 10^3/uL (0.0-1.0); MONOCYTES % (AUTO) 8.7 %; NEUTROPHILS # (AUTO) 11.5 10^3/uL (1.5-6.6); NEUTROPHILS % (AUTO) 76.8 %; PLT - PLATELET COUNT 264 10^3/uL (130-450); RED BLOOD COUNT 5.38 10^6/uL (4.20-5.40); RED CELL DISTRIBUTION WIDTH 13.5 % (12.0-15.0)
[2023-06-23] MEDS: HYDROmorphone 1 MG/ML CARPUJECT IM STA (19:18)
[2023-06-23] MEDS: SODIUM CHLORIDE 0.9% 1,000 ML IV STA (19:20)
[2023-06-23] MEDS: HYDROmorphone 1 MG/ML CARPUJECT IVP STA (19:20)
[2023-06-23 19:31] LABS: ALBUMIN 4.2 g/dL (3.2-5.5); ALBUMIN/GLOBULIN RATIO 1.8 (1.0-2.2); BILIRUBIN,TOTAL 0.4 mg/dL (0.2-1.0); CALCIUM 9.4 mg/dL (8.5-10.3); CREATININE 0.8 mg/dL (0.6-1.3); POTASSIUM 3.8 mmol/L (3.5-4.5); TOTAL PROTEIN 6.6 g/dL (6.4-8.9)
--- NOTE | 2023-06-23 19:50 | CT Report ---
PROCEDURE: Abdomen/Pelvis WO INDICATIONS: LLQ abd pain TECHNIQUE: A CT scan of the abdomen and pelvis was performed without the use of intravenous contrast. Images we re recorded and evaluated at appropriate window settings. Reformats: coronal and sagittal. For radiat ion dose reduction, the following was used: automated exposure control, adjustment of mA and/or kV ac cording to patient size. COMPARISON: 06/19/2023 FINDINGS: Image quality: Diagnostic. Lower chest: Bibasilar atelectasis more pronounced on the right. Small hiatal hernia. Liver: No contour-deforming mass. Gallbladder and biliary tree: No radiopaque stones or wall thickening. No biliary dilation. Spleen: No splenomegaly. Pancreas: No pancreatic ductal dilation. Adrenals: No adrenal nodule. Kidneys and ureters: No hydronephrosis. No renal cystic lesion which requires follow up. No solid mas s. Stomach, bowel and peritoneum: No bowel distension. No pathologic free fluid. Redemonstration of duod enal diverticulum. Diverticulitis redemonstrated. Previously seen segment of thickened sigmoid colon not as pronounced on today's study. No significant inflammatory changes. No evidence for bowel obstru ction. Normal appendix. Lymph nodes: No central or retroperitoneal adenopathy. Vessels: No infrarenal aortic aneurysm. Atherosclerosis. PELVIS Reproductive organs: Unremarkable. Bladder: No wall thickness, accounting for underdistention. Pelvic lymph nodes: No pelvic adenopathy by size criteria. Bones: No aggressive osseous abnormality. No acute compression fracture. Multilevel spondylosis. Other: No significant ventral or inguinal hernia. IMPRESSION: 1. CT abdomen and pelvis without acute abnormalities to explain patient's left lower quadrant abdomin al pain. 2. Colonic diverticulosis without evidence for acute diverticulitis. Previously seen segment of thick ened sigmoid colon is not appreciated on this examination. No significant inflammatory changes. 3. Normal appendix. 4. No evidence for urolithiasis or obstructive uropathy. 5. Small hiatal hernia. 6. Stable duodenal diverticulum. Other chronic findings as above Reviewed by: Elías Merida MD on 06/23/2023 7:48 PM PDT Approved by: Elías Merida MD on 06/23/2023 7:48 PM PDT Station ID: [id number]
[2023-06-23 20:12] LABS: BILIRUBIN,URINE NEGATIVE (NEGATIVE); GLUCOSE, URINE (UA) NEGATIVE (NEGATIVE); KETONES,URINE (UA) NEGATIVE (NEGATIVE); LEUKOCYTE ESTERASE, URINE NEGATIVE (NEGATIVE); NITRITE,URINE NEGATIVE (NEGATIVE); OCCULT BLOOD,URINE NEGATIVE (NEGATIVE); PH,URINE 6.5 PH (5.0-7.5); PROTEIN,URINE NEGATIVE (NEGATIVE); UROBILINOGEN,URINE 0.2 (NORMAL) E.U./dL (NORMAL)
[2023-06-23 20:27] LABS: CLARITY,URINE CLEAR (CLEAR)
[2023-06-23] MEDS: oxyCODONE 5 MG TABLET PO STA (21:13)
[2023-06-23 21:33] VITALS: BP 166/92; O2SAT 98
== END 2023-06-23 21:31 | disposition home or self-care (01) ==
LOC: EDUNIT# → ED 16:50
DX: M54.32 Sciatica, left side (principal); F17.200 Nicotine dependence, unspecified, uncomplicated; Z79.899 Other long term (current) drug therapy
CPT/HCPCS: 36415; 74176; 80053; 81003; 83690; 85025; 96372; 99283; 99284; A9270; J1170; 81001; 87086

== ENCOUNTER 2024-03-29 22:26 | Inpatient (IN) ==
--- NOTE | 2024-03-29 23:23 | ED Physician Documentation ---
PD HPI DYSPNEA Stated complaint Stated Complaint: SOA/COUGH Chief complaint Chief Complaint: Resp Additional information Additional information: BIBA. I had not yet started my shift when EMS arrived and thus was not present for EMS report. My HPI is from patient, patient's significant other (in ED at patient's bedside), and from ED slip cover seamstress note as well as verbal report from ED RN. Per ED slip cover seamstress note, patient presents for weakness, shortness of breath, c ough. However, on my HPI, patient tells me she is here because she drank a few beers tonight. She is vague throughout my attempt to ascertain further information regarding chief concerns/complaints. Her significant other expresses surprise that she is saying she drank tonight, does not think she did so. He says that patient has been complaining of shortness of breath and coughing over the past few days. He also says that the patient has been exhibiting confusion/disorientation since last night. Furthermore, he tells me the patient has had 2 recent ill contacts, both of whom had symptoms of URI/pneumonia (per his description). Patient does not offer complaint of chest pain; on review of systems, when I ask her about chest pain, she says she has been having chest pain over the past 1 week but in further discussion, it is increasingly unclear as to time frame, location (right/left/midline; she provides conflicting information during this HPI). Meds/Allgy Home Medications Ambulatory Orders Medication Instructions Recorded Confirmed hydrocodone 5 mg-acetaminophen 325 1 - 2 tab PO Q6H PRN Pain #15 tabs 06/19/23 03/30/24 mg tablet Allergies Allergies Allergy/AdvReac Type Severity Reaction Status Date / Time erythromycin base Allergy Mild Rash Verified 03/30/24 03:51 (Erythromycin Base) codeine AdvReac Unknown Verified 03/30/24 03:51 [facility] Social History Social History Smoking Status: Current every day smoker Living arrangement: At home Relationship: Do you feel safe in your home environment?: Yes Suffered physical, verbal, emotional, or financial abuse?: No History of Abuse: No Frequency: Occasional POLST Patient has POLST: No Exam Constitutional normal general appearance, no apparent distress and alert Respiratory breath sounds equal bilaterally and wheezing noted (expiratory wheezes) Cardiovascular heart rate abnormal (tachycardic), regular rhythm noted, no murmur, no JVD and no edema Gastrointestinal abdomen soft to palpation, nontender to palpation, nondistended and normoactive bowel sounds Psychiatry orientation abnormal (disoriented to place) awake, alert; quick and accurate with name. Initially tells me year is 1924, immediately corrects herself and accurate (2024). Knows she is in the emergency department, uncertain which one, then says "well, it's not [place]...I'm in [place]". When I tell her this is [place] and this is the [facility], she is surprised and says she still thinks this is [place] ER Skin skin color normal Results Vitals Vitals: Vital Signs - 24 hr 03/29/24 22:34 03/30/24 00:00 03/30/24 00:15 Temperature 37.5 C Temperature Source Oral Pulse Rate 121 H 162 H 136 H Respiratory Rate 20 22 Blood Pressure 127/75 123/72 O2 Saturation 99 98 25 L O2 Source Room air Room air If not protocol: Oxygen Flow, liters/minute Pain Intensity 7 7 03/30/24 00:17 03/30/24 00:22 03/30/24 00:27 Temperature Temperature Source Pulse Rate 135 H 147 H 148 H Respiratory Rate 24 Blood Pressure 116/78 105/66 96/73 O2 Saturation 94 O2 Source Room air Room air If not protocol: Oxygen Flow, liters/minute Pain Intensity 10 03/30/24 00:32 03/30/24 00:38 03/30/24 00:42 Temperature Temperature Source Pulse Rate 156 H 145 H 146 H Respiratory Rate Blood Pressure 114/71 99/68 116/76 O2 Saturation 91 L 91 L O2 Source Room air Room air If not protocol: Oxygen Flow, liters/minute Pain Intensity 10 03/30/24 00:58 03/30/24 01:03 03/30/24 01:08 Temperature Temperature Source Pulse Rate 149 H 105 H 127 H Respiratory Rate 19 Blood Pressure 130/89 125/62 111/83 O2 Saturation 91 L 92 O2 Source Nasal cannula Nasal cannula If not protocol: Oxygen Flow, liters/minute 2 2 Pain Intensity 03/30/24 01:13 03/30/24 03:48 03/30/24 04:33 Temperature Temperature Source Pulse Rate 123 H 107 H 97 Respiratory Rate 20 27 H Blood Pressure 121/80 121/60 126/61 O2 Saturation 94 91 L 93 O2 Source Nasal cannula Nasal cannula Nasal cannula If not protocol: Oxygen Flow, liters/minute 2 2 2 Pain Intensity 8 03/30/24 05:43 03/30/24 06:33 03/30/24 07:51 Temperature Temperature Source Pulse Rate 90 93 91 Respiratory Rate 16 16 18 Blood Pressure 117/57 L 112/72 125/60 O2 Saturation 92 92 88 L O2 Source Nasal cannula Nasal cannula Room air If not protocol: Oxygen Flow, liters/minute 2 2 Pain Intensity 03/30/24 08:21 03/30/24 09:00 Temperature Temperature Source Pulse Rate 99 98 Respiratory Rate 28 H 22 Blood Pressure 122/86 O2 Saturation 95 O2 Source Nasal cannula Nasal cannula If not protocol: Oxygen Flow, liters/minute 2 2 Pain Intensity 6 Oxygen O2 Source Nasal cannula EKG (time done) 22:36: EKG releavant findings:: EKG personally interpreted by author of this note. Relevant findings are: Rate: Rate (enter#) (119) and Tachy Rhythm: Sinus tachycardia and Normal P waves [place]: LAD Intervals: Normal IA QRS: QRS normal Ischemia: Normal ST segments Computer interpretation: Disagree with computer (no pvc) Labs Labs: Laboratory Tests 03/29/24 03/29/24 03/29/24 23:05 23:40 23:50 WBC 12.9 H RBC 4.80 Hgb 13.8 Hct 42.5 MCV 88.5 MCH 28.8 MCHC 32.5 RDW 13.8 Plt Count 156 MPV 11.3 H Neut # (Auto) 11.3 H Lymph # (Auto) 0.3 L [place] # (Auto) 1.0 Eos # (Auto) 0.0 Baso # (Auto) 0.1 Absolute Nucleated RBC 0.00 Nucleated RBC % 0.0 Sodium 136 Potassium 4.1 Chloride 101 Carbon Dioxide 23 Anion Gap 12.0 BUN 39 H Creatinine 1.4 H Estimated GFR (MDRD) 38 L Glucose 124 H Lactic Acid Calcium 9.6 Magnesium 2.1 Total Bilirubin 0.8 AST 15 ALT 14 Alkaline Phosphatase 94 B-Natriuretic Peptide 249 H Total Protein 7.2 Albumin 3.7 Globulin 3.5 Albumin/Globulin Ratio 1.1 Lipase < 10 L TSH 1.00 Urine Color YELLOW Urine Clarity HAZY Urine pH 6.0 Ur Specific [place] 1.020 Urine Protein 100 H Urine Glucose (UA) NEGATIVE Urine Ketones NEGATIVE Urine Occult Blood TRACE-LYSE Urine Nitrite NEGATIVE Urine Bilirubin NEGATIVE Urine Urobilinogen 0.2 (NORMAL) Ur Leukocyte Esterase NEGATIVE Urine RBC 0-5 Urine WBC 6-10 H Ur Squamous Epith Cells RARE Squamous Urine Bacteria Rare Urine Casts 3-5 WBC Casts Ur Microscopic Review INDICATED Urine Culture Comments NOT INDICATED Nasal Adenovirus (PCR) NOT DETECTED Nasal B. parapertussis DNA (PCR) NOT DETECTED Nasal Coronavir 229E PCR NOT DETECTED Nasal Coronavir HKU1 PCR NOT DETECTED Nasal Coronavir NL63 PCR NOT DETECTED Nasal Coronavir OC43 PCR NOT DETECTED Nasal Enterovir/Rhinovir PCR NOT DETECTED Nasal Influenza B PCR NOT DETECTED Nasal Influenza A PCR NOT DETECTED Nasal Parainfluen 1 PCR NOT DETECTED Nasal Parainfluen 2 PCR NOT DETECTED Nasal Parainfluen 3 PCR NOT DETECTED Nasal Parainfluen 4 PCR NOT DETECTED Nasal RSV (PCR) NOT DETECTED Nasal B.pertussis DNA PCR NOT DETECTED Nasal C.pneumoniae (PCR) NOT DETECTED Ra Human Metapneumo PCR NOT DETECTED Nasal M.pneumoniae (PCR) NOT DETECTED Nasal SARS-CoV-2 (PCR) NOT DETECTED Salicylates < 1.5 Urine Opiates Screen POSITIVE H Ur Buprenorphine Scrn NEGATIVE Ur Oxycodone Screen POSITIVE H Urine Methadone Screen NEGATIVE Acetaminophen 1.7 Ur Barbiturates Screen NEGATIVE Ur Tricyclics Screen NEGATIVE Ur Phencyclidine Scrn NEGATIVE Ur Amphetamine Screen POSITIVE H U Methamphetamines Scrn POSITIVE H U Benzodiazepines Scrn NEGATIVE Urine Cocaine Screen NEGATIVE U Cannabinoids Screen NEGATIVE Ur Drug Screen Comment CUTOFF CONC BELOW: Ethyl Alcohol < 10.0 03/30/24 04:23 WBC RBC Hgb Hct MCV MCH MCHC RDW Plt Count MPV Neut # (Auto) Lymph # (Auto) [place] # (Auto) Eos # (Auto) Baso # (Auto) Absolute Nucleated RBC Nucleated RBC % Sodium Potassium Chloride Carbon Dioxide Anion Gap BUN Creatinine Estimated GFR (MDRD) Glucose Lactic Acid 1.8 Calcium Magnesium Total Bilirubin AST ALT Alkaline Phosphatase B-Natriuretic Peptide Total Protein Albumin Globulin Albumin/Globulin Ratio Lipase TSH Urine Color Urine Clarity Urine pH Ur Specific [place] Urine Protein Urine Glucose (UA) Urine Ketones Urine Occult Blood Urine Nitrite Urine Bilirubin Urine Urobilinogen Ur Leukocyte Esterase Urine RBC Urine WBC Ur Squamous Epith Cells Urine Bacteria Urine Casts Ur Microscopic Review Urine Culture Comments Nasal Adenovirus (PCR) Nasal B. parapertussis DNA (PCR) Nasal Coronavir 229E PCR Nasal Coronavir HKU1 PCR Nasal Coronavir NL63 PCR Nasal Coronavir OC43 PCR Nasal Enterovir/Rhinovir PCR Nasal Influenza B PCR Nasal Influenza A PCR Nasal Parainfluen 1 PCR Nasal Parainfluen 2 PCR Nasal Parainfluen 3 PCR Nasal Parainfluen 4 PCR Nasal RSV (PCR) Nasal B.pertussis DNA PCR Nasal C.pneumoniae (PCR) Ra Human Metapneumo PCR Nasal M.pneumoniae (PCR) Nasal SARS-CoV-2 (PCR) Salicylates Urine Opiates Screen Ur Buprenorphine Scrn Ur Oxycodone Screen Urine Methadone Screen Acetaminophen Ur Barbiturates Screen Ur Tricyclics Screen Ur Phencyclidine Scrn Ur Amphetamine Screen U Methamphetamines Scrn U Benzodiazepines Scrn Urine Cocaine Screen U Cannabinoids Screen Ur Drug Screen Comment Ethyl Alcohol Rads (name of study) CXR: Relevant Findings:: Prelim report reviewed and See rad report PD Medical Decision Making ED course Complexity details: reviewed results, re-evaluated patient, considered differential and d/w patient ED course: Mild leukocytosis on otherwise unremarkable CBC (WBC 12.9). Respiratory PCR panel is negative for the viruses tested on this panel. ER abdominal panel notable for elevated BUN (39), creatinine (1.4), and low GFR (38). Normal TSH, mildly elevated BNP (249). Urine drug screen is positive for opiates, oxycodone, amphetamines, methamphetamines. Urinalysis with 6-10 WBC/hpf, negative squamous cells, only rare bacteria. Chest x-ray shows significant right upper lobe infiltrate as well as left basilar infiltrate. Both the patient and her boyfriend indicate to me that the patient is scheduled to have some sort of chest imaging later today to screen for malignancy. It is very much unclear from patient and her boyfriend whether the imaging is due to specific signs, symptoms, and/or recent abnormalities on studies such as chest x-ray. The patient tells me she has no history of COPD, emphysema, asthma. She does not use oxygen at home and she tells me she does not use/has not been prescribed inhalers nor nebulizers. I accessed the patient's records that were available via [employer] and those records indicate the patient is scheduled to have CT chest with renal-adjusted IV contrast to screen for malignancy due to her age combined with smoking (patient confirms to me she still smokes). I do not see any indication in the records in epic of abnormal chest x-ray findings, thus I then initiate treatment for presumed pneumonia. She is given IV zosyn and cipro. Was considering Rocephin and Zithromax; however, erythromycin is listed as one of her allergies and expanse. On initial ED presentation, patient is in ST on monitor (mostly 110 heart rate) but then went into atrial fibrillation with RVR (150s-170s) for which she is given 15mg IV cardizem followed by 20mg IV cardizem. Neither dose of cardizem had adequate effect (130s-150s heart rate). I then d/w patient my recommendation to cardiovert her (explained in layperson language), but during this discussion she spontaneously converted to NSR. Note that patient required 2 L nasal cannula oxygen throughout ED stay to maintain saturations at/above 90%. Patient is held in the ED for the remainder of my shift overnight due to no beds available at [facility] aside from ICU. Care of patient is turned over to Dr. Yi at end of my shift Discharge Plan Discharge Patient Disposition: [facility] DC/Xfer Condition: Fair Clinical Impression: Pneumonia Qualifiers: Pneumonia type: due to unspecified organism Laterality: bilateral Lung location: unspecified part of lung Qualified Code(s): J18.9 - Pneumonia, unspecified organism Prescriptions: No Action hydrocodone-acetaminophen 1 TAB tablet 1 - 2 tab PO Q6H PRN (Reason: Pain) Qty: 15 0RF Print Language: Bulgarian
[2024-03-29] MEDS: SODIUM CHLORIDE 0.9% 1,000 ML IV STA (23:45)
[2024-03-29 23:57] LABS: BASOPHILS # (AUTO) 0.1 10^3/uL (0.0-0.1); BASOPHILS % (AUTO) 0.6 %; EOSINOPHILS % (AUTO) 0.1 %; HCT - HEMATOCRIT 42.5 % (37.0-47.0); HGB - HEMOGLOBIN 13.8 g/dL (12.0-16.0); LYMPHOCYTES # (AUTO) 0.3 10^3/uL (1.5-3.5); LYMPHOCYTES % (AUTO) 2.6 %; MEAN CORPUSCULAR HEMOGLOBIN 28.8 pg (27.0-31.0); MEAN CORPUSCULAR HGB CONC 32.5 g/dL (32.0-36.0); MEAN CORPUSCULAR VOLUME 88.5 fL (81.0-99.0); MEAN PLATELET VOLUME 11.3 fL (7.9-10.8); MONOCYTES % (AUTO) 7.6 %; NEUTROPHILS # (AUTO) 11.3 10^3/uL (1.5-6.6); NEUTROPHILS % (AUTO) 88.2 %; PLT - PLATELET COUNT 156 10^3/uL (130-450); RED CELL DISTRIBUTION WIDTH 13.8 % (12.0-15.0); WHITE BLOOD COUNT 12.9 x10^3/uL (4.8-10.8)
[2024-03-30 00:05] LABS: B. PARAPERTUSSIS- RESP PCR PAN NOT DETECTED; B. PERTUSSIS- RESP PCR PANEL NOT DETECTED; C. PNEUMONIAE- RESP PCR PANEL NOT DETECTED; CORONAVIRUS 229E-RESP PCR NOT DETECTED; CORONAVIRUS HKU1-RESP PCR NOT DETECTED; CORONAVIRUS NL63-RESP PCR NOT DETECTED; CORONAVIRUS OC43-RESP PCR NOT DETECTED; HUMAN METAPNEUMOVIRUS NOT DETECTED; INFLUENZA A- RESP PCR PANEL NOT DETECTED; INFLUENZA B - RESP PCR PANEL NOT DETECTED; M. PNEUMONIAE- RESP PCR PANEL NOT DETECTED; PARAINFLUENZA VIRUS 1 NOT DETECTED; PARAINFLUENZA VIRUS 2 NOT DETECTED; PARAINFLUENZA VIRUS 4 NOT DETECTED; RHINOVIRUS/ENTEROVIRUS NOT DETECTED; RSV- RESP PCR PANEL NOT DETECTED; SARS-CoV-2 -RESP PCR PANEL NOT DETECTED
[2024-03-30 00:08] LABS: MAGNESIUM 2.1 mg/dL (1.7-2.3)
[2024-03-30] MEDS: diltiaZEM INJ 5 MG/ML VIAL IVP STA ×2 (00:12→01:00)
[2024-03-30 00:14] LABS: ACETAMINOPHEN 1.7 ug/mL; ALBUMIN 3.7 g/dL (3.2-5.5); ALBUMIN/GLOBULIN RATIO 1.1 (1.0-2.2); ALKALINE PHOSPHATASE 94 IU/L (42-121); ALT ALANINE AMINOTRANSFERASE 14 IU/L (10-60); AST ASPARTATE AMINOTRANSFERASE 15 IU/L (10-42); BILIRUBIN,TOTAL 0.8 mg/dL (0.2-1.0); BUN - BLOOD UREA NITROGEN 39 mg/dL (6-20); CALCIUM 9.6 mg/dL (8.5-10.3); CARBON DIOXIDE - CO2 23 mmol/L (21-32); CHLORIDE 101 mmol/L (101-111); CREATININE 1.4 mg/dL (0.6-1.3); ETOH - ETHANOL < 10.0 mg/dL; GFR - MDRD 38 (>89); GLUCOSE 124 mg/dL (74-104); LIPASE < 10 U/L (11-82); POTASSIUM 4.1 mmol/L (3.5-4.5); SODIUM 136 mmol/L (135-145); TOTAL PROTEIN 7.2 g/dL (6.4-8.9)
[2024-03-30 00:18] LABS: SALICYLATE < 1.5 mg/dL
[2024-03-30 00:25] LABS: BILIRUBIN,URINE NEGATIVE (NEGATIVE); GLUCOSE, URINE (UA) NEGATIVE (NEGATIVE); KETONES,URINE (UA) NEGATIVE (NEGATIVE); LEUKOCYTE ESTERASE, URINE NEGATIVE (NEGATIVE); NITRITE,URINE NEGATIVE (NEGATIVE); OCCULT BLOOD,URINE TRACE-LYSE (NEGATIVE); PROTEIN,URINE 100 mg/dL (NEGATIVE); UROBILINOGEN,URINE 0.2 (NORMAL) E.U./dL (NORMAL)
[2024-03-30 00:26] LABS: CLARITY,URINE HAZY (CLEAR)
[2024-03-30 00:37] LABS: AMPHETAMINE SCREEN,URINE POSITIVE (NEGATIVE); BACTERIA,URINE Rare /HPF (None Seen); BARBITURATE SCREEN,UR NEGATIVE (NEGATIVE); BENZODIAZEPINES SCREEN, URINE NEGATIVE (NEGATIVE); CASTS, URINE 3-5 WBC Casts /LPF; COCAINE SCREEN URINE NEGATIVE (NEGATIVE); METHADONE SCREEN, URINE NEGATIVE (NEGATIVE); METHAMPHETAMINES SCREEN, URINE POSITIVE (NEGATIVE); OPIATE SCREEN, URINE POSITIVE (NEGATIVE); OXYCODONE SCREEN, URINE POSITIVE (NEGATIVE); RBC,URINE 0-5 /HPF (0-5); SQUAMOUS EPITHELIAL CELL,UR RARE Squamous (<= Few); THC CANNABINOID SCREEN, URINE NEGATIVE (NEGATIVE); TRICYCLIC ANTIDEPRESSANT,URINE NEGATIVE (NEGATIVE)
[2024-03-30 00:38] LABS: BUPRENORPHINE SCREEN, URINE NEGATIVE (NEGATIVE)
--- NOTE | 2024-03-30 01:04 | XRAY Report ---
PROCEDURE: XR Chest 1V INDICATIONS: dyspnea TECHNIQUE: One view of the chest was acquired. COMPARISON: CT 04/30/2022 FINDINGS AND IMPRESSION: Dense consolidation is seen in the right upper lobe. Moderate opacity also seen in the left midlung. Findings suspicious for multifocal pneumonia. Surveillance radiograph or CT is needed to ensure ther e is no underlying mass following clinical treatment. Please note patient is also overdue for low dos e lung cancer screening if still eligible. No pleural effusion. Low lung volumes. Normal heart size. Aortic calcifications. Reviewed by: Shola Dahl MD on 03/30/2024 1:03 AM PST Approved by: Shola Dahl MD on 03/30/2024 1:03 AM PST Station ID: [id number]
[2024-03-30] MEDS: PIPERACILLIN/TAZOBACTAM 3.375 GM in SODIUM CHLORIDE 0.9% MINIBAG 100 ML IV STA (04:35)
[2024-03-30] MEDS: CIPROFLOXACIN 400 MG/200 ML 400 MG/200 ML BAG IV STA (05:12)
[2024-03-30] MEDS: ALBUTEROL NEB 2.5 MG/3 ML INH STA (08:18)
[2024-03-30] MEDS: ACETAMINOPHEN 325 MG TABLET PO STA (11:33)
[2024-03-30] MEDS: KETOROLAC 15 MG/ML VIAL IVP STA (11:34)
--- NOTE | 2024-03-30 13:01 | HISTORY & PHYSICAL EXAMINATION ---
Chief Complaint <Mary Payne - Last Filed: 03/30/24 15:13> Chief Complaint Chief Complaint: weakness, shortness of breath, coughing History of Present Illness <Mary Payne - Last Filed: 03/30/24 15:13> Admitted From Admitted From:: Emergency Department History Obtained From History obtained from: Self, son Isela, boyfriend Medhat History of Present Illness HPI Comment/Other: Nancy is a 68-year-old female who presents to ED today due to progressively worsening cough, shortness of breath, and fatigue. Information is provided by Nancy, her adult son Isela, and her boyfriend Medhat. Some information from son/boyfriend is contradictory to her initial reports, but she typically agrees with their information more than what she initially said. She is pleasant, alert and oriented x4, talkative, and cooperative. She appears uncomfortable due to being excessively warm and back discomfort due to hospital bed. When asked why she is here at the ED, she pointed to her son to indicate that he brought her. Her son reports finding her "on the toilet for an hour," slumped over, lethargic, confused, and generally "out of it". Both deny loss of consciousness and report she was awake, with eyes open and able to communicate when he found her, but she was unable to stand on her own due to weakness. He states he had to assist her with standing and with putting her underpants back on. She denies that she was on the toilet for that long, but her son insists the duration was "at least" one hour. She states she was only urinating, did not have or attempt to have a bowel movement, no nausea or vomiting, and no abdominal cramping or discomfort. She states she is here because she has been "sick for a while". She describes this as "hardly moving", decreased appetite, coughing, and just "feeling bad." She has had progressively worsening cough, shortness of breath, disequilibrium, and fatigue for several months. She is unable to pinpoint exactly how long, but does note symptoms are worsening. She states the last 1 week has been especially bad, with increased difficulty breathing, cough with phlegm, and fever. Her son reports fever of 101.5F last night. She has chronic sinus problems and uses a generic nasal spray daily, but does not know what this medication is. She notes she has not needed any nasal spray for 1 week, her sinuses/nose have been uncharacteristically clear. She describes her disequilibrium as "veering to the right" for the last 2 months. She also has chronic back pain, left sided low back pain with sciatica, and right shoulder pain. She denies vertigo, hearing change, headache, hemoptysis, sinus pain or pressure, new or changing myalgias or arthralgias. She describes her mood as "grumpy" and laughingly says she has been grumpy her entire life. She also states she is scared and worrying a lot about her health, especially due to her PCP's recommendation for low-dose CT screening for lung cancer due to smoking history. She is very concerned that she may have cancer or other illness because this screening exam was recommended. She states she usually "sleeps hard" but lately has been sleeping 2-3 hours, waking up, then sleeping for 2-3 more hours. She is unsure why she is waking at night. She states she has a long history of depression and anxiety, which she does not currently take medication for. She denies cardiac or pleuritic chest pain, however she does have musculoskeletal chest pain due to her dog tugging at its leash about 1 week ago. The dog pulled its leash which jolted her right arm, aggravating her chronic right shoulder pain and causing chest muscle pain. She denies any changing or new chest pain, and denies pain radiation to arms or neck. She is a heavy smoker, 2 packs per day since age 17, but reports she stopped smoking 2-3 days ago due to increased coughing and difficulty breathing. She drinks an average of 2-3 [place] Hard Lemonades per night. She denies marijuana use in any form. She initially denies illicit drug use, but upon correction by her boyfriend, admits to smoking methamphetamine with a pipe as needed for depression, anxiety, and pain. It is unclear how frequently she does this. She admits to smoking methamphetamine last night due to feeling "shitty and bad." Upon clarification she explains she feels bad due to chronic depression, anxiety, and pain, and states she attempts to self medicate with substances. She lives in [place] with her adult son Isela and grandson Carson, along with their dogs. Her adult daughter Drew lives in [place]. It is unclear if her boyfriend Medhat lives with them as well, or if he just stays over frequently. 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 She reports only taking oxycodone-acetaminophen once or twice daily due to chronic back pain. She has been taking OTC ibuprofen for the last few days per her son's advice. She denies any other prescription or over the counter medications. Her PCP is Dr. Gant at the [facility] in [place], [place]. Meds/Allgy <Mary Payne - Last Filed: 03/30/24 15:13> Home Medications Ambulatory Orders Medication Instructions Recorded Confirmed hydrocodone 5 mg-acetaminophen 325 1 - 2 tab PO Q6H PRN Pain #15 tabs 06/19/23 03/30/24 mg tablet Allergies Allergies Allergy/AdvReac Type Severity Reaction Status Date / Time erythromycin base Allergy Mild Rash Verified 03/30/24 03:51 (Erythromycin Base) codeine AdvReac Unknown Verified 03/30/24 03:51 PFSH <Mary Payne - Last Filed: 03/30/24 15:13> Family History Family History (Updated 03/30/24 @ 14:51 by Dev Cai MD) Mother Cancer Social History Social History Smoking Status: Current every day smoker If you are a former smoker, when did you quit? (Date/Year): 03/29/24 Number of Years Smoked: 50 How many cigarettes a day do you smoke? (20 cigarettes=1 Pk): 20 Second hand tobacco smoke exposure: Yes Do you dip or chew tobacco?: No Do you vape?: No Patient requests smoking cessation consult: No Initiate information on smoking cessation: No Living arrangement: At home Relationship: Spouse Level: Independent Do you feel safe in your home environment?: Yes Suffered physical, verbal, emotional, or financial abuse?: No History of Abuse: No Frequency: Occasional Substance Use: cannabis (any form) POLST Patient has POLST: No Review of Systems <Mary Payne - Last Filed: 03/30/24 15:13> Constitutional Reports: Fatigue, Fever, Malaise, Weakness, Poor appetite and Change in sleep pattern Eyes Denies: Change in vision Ears, nose, mouth, and throat Reports: Nasal congestion; Denies: Ear pain, Change in hearing or Vertigo Cardiovascular Reports: chest pain (muscular), lightheadedness and shortness of breath with exertion; Denies: edema, swelling of feet/ankles or Syncope Respiratory Reports: Shortness of breath, Cough, Sputum production, Wheezing and SOB at rest; Denies: Pleuritic pain, Pain on inspiration or Coughing up blood Gastrointestinal Denies: Abdominal pain, Nausea or Vomiting Genitourinary Denies: Painful urination, Urinary frequency, Urinary urgency, Urinary incontinence, Blood in urine or Flank pain Musculoskeletal Reports: Back pain and Muscle pain; Denies: Limited range of motion Integumentary/Breast Reports: Dryness (dry skin on both feet); Denies: Rash Neurological Reports: General weakness, Dizziness and Confusion; Denies: Headache or Vertigo Psychiatric Reports: Depression, Anxiety and Irritability Endocrine Reports: Fatigue Hematologic/Lymphatic Denies: Easy bruising Allergic/Immunologic Reports: Wheezing <Mary Payne - Last Filed: 03/30/24 15:13> Prior Level of Functionality: Fully functional, no assistance needed for activities of daily living. Exam <Mary Payne - Last Filed: 03/30/24 15:13> Constitutional no apparent distress, abnormal body habitus (obese) and alert HENMT normocephalic, head/scalp atraumatic and hearing grossly normal bilaterally Eyes PERRL, EOMs intact bilaterally and no scleral icterus Neck/C-Spine visual inspection normal, trachea midline and cervical full ROM noted Lymph no lymphadenopathy noted and no lymphedema noted Chest inspection of chest normal and palpation of chest normal Respiratory breath sounds equal bilaterally, abnormal respiratory effort (speaking in full sentences, pauses between sentences to catch her breath), wheezing noted (expiratory wheezes) and (scattered wheezes) and no retractions Cardiovascular normal heart rate noted, no murmur, no JVD, peripheral pulses 2+ throughout and no edema Gastrointestinal abdomen normal to inspection, abdomen soft to palpation and nontender to palpation Genitourinary no CVA tenderness Back/Pelvis spine normal to inspection Extremities abnormal to inspection (right hand with nonpitting edema (normal per patient)), full ROM, no joint enlargement and no deformity Neurology heel seat sander II-XII intact and no movement abnormality noted Psychiatry oriented x3, cooperative, affect normal and psychomotor activity normal Skin skin color abnormal (flushed), no jaundice and nails abnormality noted (fungal infection of all toenails. No clubbing, cyanosis, or pitting.) bilateral feet with dry, cracked skin. No edema, wounds, or abrasions. Sepsis Event Note (H) <Mary Payne - Last Filed: 03/30/24 15:13> Evaluation Current Stage of Sepsis: Sepsis Possible source of Sepsis: positive Pulmonary Sepsis Criteria Sepsis Criteria: Recorded Heart Rate greater than 90 bpm, Recorded Respiratory Rate greater than 20, Respiratory: Increasing oxygen requirements and WBC count greater than 12,000 or less than 4000 Conclusion/Plan <Mary Payne - Last Filed: 03/30/24 15:13> Problem List (1) Community acquired pneumonia: Plan: Infiltrates seen on chest XR in right upper lobe and left lower lobe. Patient with spO2 95% on 2L oxygen with nasal cannula. Cough and sputum production, fever, and shortness of breath consistent with pneumonia. At higher risk of complication due to heavy current cigarette smoking and current methamphetamine smoking. High suspicion for undiagnosed COPD due to chronic cough and extensive smoking history. We will treat with IV steroid and duoneb treatment to improve breathing. We will change patient's antibiotics to preferred Rocephin and azithromycin. Her prior erythromycin allergy was mild rash during childhood. Will monitor closely for signs of allergic response. Qualifiers: Laterality: unspecified laterality Qualified Code(s): J18.9 - Pneumonia, unspecified organism (2) Sepsis: Plan: Patient meets sepsis criteria due to tachycardia at 108bpm, tachypnea at 28 rpm, leukocytosis at 12.3, and pneumonia. Treating with two antibiotics for CAP, will monitor for progression. Qualifiers: Sepsis acute organ dysfunction status: without acute organ dysfunction Sepsis type: sepsis due to unspecified organism Qualified Code(s): A41.9 - Sepsis, unspecified organism (3) Acute kidney injury: Plan: Creatinine creased to 1.4. This should improve with IV fluids. Will monitor for any changes in urine output or electrolytes. (4) Tobacco dependence: Plan: 102 pack years, currently smoking 2 packs of cigarettes per day. (5) Methamphetamine use: Plan: Regular methamphetamine use smoked through pipe. UDS positive for methamphetamine at ED admission. Lab Results Lab results reviewed: Yes 03/29/24 23:50 03/29/24 23:50 Diagnostic Imaging Results Diagnostic Imaging Results: positive Final report reviewed EKG Results EKG Interpreted Independently: Yes EKG Comparison: No prior EKG EKG Findings: Sinus tachycardia without PVC or evidence of infarction. Rate 119, AL 134, QRS 85. <Dev Cai MD - Last Filed: 03/30/24 15:25> Problem List (1) Community acquired pneumonia: (2) Sepsis: (3) Acute kidney injury: Plan: Creatinine increased to 1.4. This should improve with IV fluids. Will monitor for any changes in urine output or electrolytes. (4) Tobacco dependence: (5) Methamphetamine use: Core Measures <Mary Payne - Last Filed: 03/30/24 15:13> Anticipated LOS I expect patient to be DC'd or transferred within 96 hours.: Yes DVT/VTE - Prophylaxis VTE/DVT Device ordered at admit?: No Not Ordered - Medical Reason: Not tolerated (chronic left LE paresthesia worsened by contact) VTE/DVT Prophylaxis med ordered at admit?: Yes Stroke - Rehab Assessment Rehab services assessment to be ordered?: No Not Ordered - Medical Reason: Not indicated AMI - Statin at Admit Aspirin Prescribed on Admit: No Not Ordered - Medical Reason: Not indicated Family History <Mary Payne - Last Filed: 03/30/24 15:13> Family History Family History: Mother: Cancer (Lung cancer, diagnosed at age 57, heavy smoker)
[2024-03-30] MEDS ORDERED: ONDANSETRON ODT 4 MG TABLET TL PRN (13:26)
[2024-03-30] MEDS ORDERED: SODIUM CHLORIDE FLUSH 0.9% 10 ML SYRINGE IVP PRN (13:26)
[2024-03-30] MEDS: HYDROcod/ACETAM 5/325 MG TABLET PO PRN (14:00)
[2024-03-30] MEDS ORDERED: iohexoL-300 100 ML VIAL ONE (14:10)
--- NOTE | 2024-03-30 14:57 | PHARMACY PROGRESS NOTE ---
Best Possible Medication History Admit Date and Time: 03/30/24 1313 Home Medications Medication Instructions Recorded Confirmed Type hydrocodone 5 mg-acetaminophen 325 1 - 2 tab PO Q6H PRN Pain #15 tabs 06/19/23 03/30/24 Rx mg tablet Processed by: Nursing Medications reviewed in ED?: Yes Medication History completed: Yes Patient Interview: Completed Secondary Source(s): Pharmacy records and Insurance records [facility] Statement: As the person ultimately responsible for medication therapy, providers are able to order a medication from an existing home medication list in [facility] via the "Reconcile Routine" prior to Confirmation of that medication by direct support worker. Such practice is discouraged except when the physician, in their clinical judgment, deems that a medical need exists for a medication without regard to previous use.
--- NOTE | 2024-03-30 15:13 | PT Plan of Care ---
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 Indep at baseline and lives in [facility] with family and SO. Upon PT eval, pt on 3.5L O2, sats 95-97% at rest and with activity. Pt is Rico overall for transfers and short distance ambulation in room. Pt presents with good overall strength and good indep with functional mobility. Does not appear to have much need for skilled acute PT services but given recent onset of SOA and pt reported " weakness" PT will return tomorrow for progression of mobility and ambulation distance. When medically clear, PT anticipates pt will dc to prior living situation without further rehab need. Goals Improve bed mobility to: Independent Improve supine to sit to: Independent Improve sit to stand to: Independent Improve pivot transfer ability Independent to: Improve sit to supine to: Independent Improve gait ability to: Ind Assistive Device Used: None PT Plan of Care Duration 1-2 more sessions Discharge Recommendations Discharge Location Previous Living Situation Other none anticipated Transport Needs at Discharge Personal vehicle
--- NOTE | 2024-03-30 15:28 | OT Plan of Care ---
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 Met on 3.5 L NC o2 - Spo2 above 90% during session. Performed functional mobility and ADL's with INDP no use of AD - Slowed pace and quick to fatigue. Pt with no acute skilled OT need at this time. Rec mobility with nursing prn. D/c home with family assist when medically stable. Plan Treatment Frequency Evaluation only, no further O.T. -Discharge Recommendations Discharge Location Previous Living Situation Transport Needs at Discharge Personal vehicle
[2024-03-30] MEDS: iohexoL-300 100 ML VIAL IVP ONE (15:34)
[2024-03-30] MEDS: IPRATROPIUM/ALBUTEROL 3 ML NEB INH SCH (15:51)
--- NOTE | 2024-03-30 16:46 | CT Report ---
PROCEDURE: CT Chest W INDICATIONS: SANTOS CONTRAST: OMNI 300 100ML TECHNIQUE: After the administration of intravenous contrast, a CT scan of the chest was performed. Images were recorded and evaluated at appropriate window settings. Reformats: axial MIP of the chest, coronal and sagittal. For radiation dose reduction, the following was used: automated exposure control, adjustme nt of mA and/or kV according to patient size. COMPARISON: 04/30/2022 FINDINGS: Image quality: Diagnostic. Chest wall and lower neck: No thyroid nodule which requires sonographic follow up. No breast mass. No axillary or supraclavicular adenopathy by size. Lungs and pleura: Large consolidative opacity in the right upper lobe with adjacent groundglass. Smal ler consolidative opacities involving the lingula. Mediastinum: Heart size is normal. No pericardial effusion. No large vessel abnormality. Few prominen t mediastinal lymph nodes are likely reactive. Small hiatal hernia. Bones: No aggressive osseous abnormality. Degenerative changes of the spine. Upper Abdomen: Unremarkable. IMPRESSION: Large consolidative opacity in the right upper lobe with adjacent groundglass. Smaller consolidative opacity within the lingula. Findings are consistent with pneumonia. Recommend follow-up CT chest in 3 months to ensure resolution and exclude underlying neoplasm. Reviewed by: Shabbir Presley MD on 03/30/2024 4:45 PM PST Approved by: Shabbir Presley MD on 03/30/2024 4:45 PM PST Station ID: [id number]
[2024-03-30] MEDS: SODIUM CHLORIDE FLUSH 0.9% 10 ML SYRINGE IVP SCH (17:42)
[2024-03-30] MEDS: methylPREDNISolone SUCCINATE 40 MG/ML VIAL IVP SCH (17:43)
[2024-03-30] MEDS: HEPARIN 5,000 UNIT/ML VIAL SUBQ SCH (20:39)
[2024-03-31] MEDS: ACETAMINOPHEN 325 MG TABLET PO PRN (01:16)
[2024-03-31 06:06] LABS: HCT - HEMATOCRIT 36.9 % (37.0-47.0); HGB - HEMOGLOBIN 11.8 g/dL (12.0-16.0); MEAN CORPUSCULAR HEMOGLOBIN 28.5 pg (27.0-31.0); MEAN CORPUSCULAR VOLUME 89.1 fL (81.0-99.0); MEAN PLATELET VOLUME 10.7 fL (7.9-10.8); RED BLOOD COUNT 4.14 10^6/uL (4.20-5.40); RED CELL DISTRIBUTION WIDTH 14.3 % (12.0-15.0); WHITE BLOOD COUNT 7.9 x10^3/uL (4.8-10.8)
[2024-03-31 06:27] LABS: CALCIUM 9.3 mg/dL (8.5-10.3); CREATININE 1.1 mg/dL (0.6-1.3); MAGNESIUM 2.6 mg/dL (1.7-2.3); POTASSIUM 4.4 mmol/L (3.5-4.5)
[2024-03-31] MEDS: BENZONATATE 100 MG CAPSULE PO PRN (06:57)
[2024-03-31] MEDS: cefTRIAXone 1 GM VIAL IVP SCH (08:35)
[2024-03-31] MEDS: guaiFENesin 600 MG TABLET PO SCH (08:35)
[2024-03-31] MEDS: AZITHROMYCIN 250 MG TABLET PO SCH (08:35)
--- NOTE | 2024-03-31 12:17 | PROVIDER PROGRESS NOTE ---
Subjective Subjective Subjective: Today, patient is feeling better. She states her weakness is improving. She still has a cough, but is becoming less frequent. She denies any fevers or chills. She is eating and drinking well. Current Medications Current Medications Current Medications: Current Medications Generic Name Dose Route Start Last Admin Trade Name Freq PRN Reason Stop Dose Admin Acetaminophen 650 mg 03/30/24 13:26 03/31/24 11:39 Acetaminophen 325 Mg Tablet PO 650 mg Q4HR PRN Administration Pain 1 to 4, or Fever Hydrocodone Bitart/Acetaminophen 1 tab 03/30/24 13:26 03/31/24 11:41 Hydrocod/Acetam 5/325 Mg Tablet PO 1 tab Q4HR PRN Administration Pain 5 to 7 Albuterol/Ipratropium 3 ml 03/30/24 18:52 Ipratropium/Albuterol 3 Ml Neb INH RTQ4H PRN Wheezing Azithromycin 500 mg 03/31/24 09:00 03/31/24 08:35 Azithromycin 250 Mg Tablet PO 500 mg DAILY SIDNEY Administration Benzonatate 100 mg 03/31/24 03:50 03/31/24 11:39 Benzonatate 100 Mg Capsule PO 100 mg TID PRN Administration Cough Ceftriaxone Sodium 1 gm 03/31/24 09:00 03/31/24 08:35 Ceftriaxone 1 Gm Vial IVP 1 gm DAILY SIDNEY Administration Guaifenesin 600 mg 03/31/24 09:00 03/31/24 08:35 Guaifenesin 600 Mg Tablet PO 600 mg BID SIDNEY Administration Heparin Sodium (Porcine) 5,000 unit 03/30/24 21:00 03/31/24 08:35 Heparin 5,000 Unit/Ml Vial SUBQ 5,000 unit BID SIDNEY Administration Ondansetron HCl 4 mg 03/30/24 13:26 Ondansetron Odt 4 Mg Tablet TL Q6HR PRN Nausea / Vomiting Sodium Chloride 10 ml 03/30/24 13:26 Sodium Chloride Flush 0.9% 10 Ml Syringe IVP PRN PRN NEEDED PER PROVIDER ORDERS Sodium Chloride 10 ml 03/30/24 17:00 03/31/24 08:35 Sodium Chloride Flush 0.9% 10 Ml Syringe IVP 10 ml 0100,0900,1700 SIDNEY Administration Sterile Water 10 ml 03/31/24 09:00 03/31/24 08:35 Water For Injection,Sterile 10 Ml Vial MC 10 ml DAILY SIDNEY Administration Objective Vital Signs/Intake & Output Reviewed Vital Signs: Yes Vital Signs: Vital Signs x48h Temp Pulse Resp BP Pulse Ox 03/31/24 08:17 98.1 F 77 20 143/78 H 95 Intake & Output: Intake & Output 03/28/24 03/29/24 03/30/24 03/31/24 23:59 23:59 23:59 23:59 Intake Total 1500 / 1500 500 / 500 Output Total 400 / 400 Balance 1500 / 1500 100 / 100 Weight (kg) 81.1 kg 82.5 kg Objective General Appearance: positive No acute distress and Alert; negative Anxious Eyes Bilateral: positive Normal inspection, PERRL and EOMI ENT: positive ENT inspection nml, Pharynx nml and No signs of dehydration Neck: positive Nml inspection, Thyroid nml, No JVD and Trachea midline Respiratory: positive Chest non-tender, No respiratory distress, Wheezes (improved, expiratory, diffuse, good air movement) and Rhonchi; negative Rales Cardiovascular: positive Regular rate & rhythm, No murmur and No gallop Abdomen: positive Non-tender, No organomegaly and No distention; negative Tenderness, Guarding, Rebound or Hepatomegaly Back: positive Nml inspection; negative CVA tenderness (R) or CVA tenderness (L) Skin: positive Color nml, No rash, Warm and Dry Extremities: positive Non-tender, Full ROM, Nml appearance and No pedal edema Neurologic/Psychiatric: positive Oriented x3 and Mood/affect nml Lab Results 03/31/24 05:55 03/31/24 05:55 Other Labs: Lab Results x24hrs 03/31/24 Range/Units 05:55 WBC 7.9 (4.8-10.8) x10^3/uL RBC 4.14 L (4.20-5.40) 10^6/uL Hgb 11.8 L (12.0-16.0) g/dL Hct 36.9 L (37.0-47.0) % MCV 89.1 (81.0-99.0) fL MCH 28.5 (27.0-31.0) pg MCHC 32.0 (32.0-36.0) g/dL RDW 14.3 (12.0-15.0) % Plt Count 183 (130-450) 10^3/uL MPV 10.7 (7.9-10.8) fL Sodium 135 (135-145) mmol/L Potassium 4.4 (3.5-4.5) mmol/L Chloride 103 (101-111) mmol/L Carbon Dioxide 23 (21-32) mmol/L Anion Gap 9.0 (6-13) BUN 34 H (6-20) mg/dL Creatinine 1.1 (0.6-1.3) mg/dL Estimated GFR (MDRD) 50 L (>89) Glucose 231 H (74-104) mg/dL Calcium 9.3 (8.5-10.3) mg/dL Magnesium 2.6 H (1.7-2.3) mg/dL Diagnostic Imaging Diagnostic Imaging Results: positive Final report reviewed Sepsis Event Note (H) Evaluation Current Stage of Sepsis: Sepsis Possible source of Sepsis: positive Pulmonary Sepsis Criteria Sepsis Criteria: Recorded Heart Rate greater than 90 bpm, Recorded Respiratory Rate greater than 20, Respiratory: Increasing oxygen requirements and WBC count greater than 12,000 or less than 4000 Assessment/Plan Problem List (1) Community acquired pneumonia: Impression: Chest x-ray and CT shows infiltrates in right upper lobe and left lower lobe. Patient was requiring 2 L, now weaned down to room air. Continue Rocephin and azithromycin at this time. High suspicion for undiagnosed COPD with extensive smoking history. Transition to oral prednisone today. Continue DuoNebs as needed. Advised to abstain from tobacco use. Qualifiers: Laterality: unspecified laterality Qualified Code(s): J18.9 - Pneumonia, unspecified organism (2) Sepsis: Impression: Tachycardia, leukocytosis resolved. Sepsis has resolved. Qualifiers: Sepsis acute organ dysfunction status: without acute organ dysfunction Sepsis type: sepsis due to unspecified organism Qualified Code(s): A41.9 - Sepsis, unspecified organism (3) Acute kidney injury: Impression: Resolved with IVF. Continue to monitor. (4) Tobacco dependence: Impression: Continue nicotine patch. (5) Methamphetamine use: Impression: Advised to abstain from methamphetamine use.
[2024-03-31] MEDS: predniSONE 20 MG TABLET PO SCH (12:35)
[2024-03-31] MEDS: IPRATROPIUM/ALBUTEROL 3 ML NEB INH PRN (12:53)
[2024-03-31] MEDS: MULTIVITAMIN W/MINERALS TABLET PO SCH (16:19)
--- NOTE | 2024-03-31 17:24 | ED Physician Documentation ---
ED Addendum Addendum Addendum: Patient slated for admission once beds available. No problems while remained in ED. Hospitalist subsequently care to ED to see pt and placed admission orders. Discharge Plan Discharge Patient Disposition: 68 [facility] DC/Xfer Condition: Fair Clinical Impression: Pneumonia Qualifiers: Pneumonia type: due to unspecified organism Laterality: bilateral Lung location: unspecified part of lung Qualified Code(s): J18.9 - Pneumonia, unspecified organism Interventions: ED Admission Assessment Last Done: 03/30/24 13:41
[2024-04-01 05:44] LABS: HCT - HEMATOCRIT 35.2 % (37.0-47.0); HGB - HEMOGLOBIN 11.6 g/dL (12.0-16.0); MEAN CORPUSCULAR HEMOGLOBIN 29.1 pg (27.0-31.0); MEAN CORPUSCULAR VOLUME 88.2 fL (81.0-99.0); MEAN PLATELET VOLUME 10.9 fL (7.9-10.8); RED BLOOD COUNT 3.99 10^6/uL (4.20-5.40); RED CELL DISTRIBUTION WIDTH 14.1 % (12.0-15.0); WHITE BLOOD COUNT 11.9 x10^3/uL (4.8-10.8)
[2024-04-01 06:06] LABS: CREATININE 0.8 mg/dL (0.6-1.3); MAGNESIUM 2.4 mg/dL (1.7-2.3); POTASSIUM 4.6 mmol/L (3.5-4.5)
--- NOTE | 2024-04-01 12:38 | PROVIDER PROGRESS NOTE ---
Subjective Subjective Subjective: Today, patient is feeling worse. She has diffuse chest pain whenever she coughs. This is reproducible with palpation. She has had some alternating fevers and chills. She still has a persistent cough. She feels very weak, dizzy, lightheaded whenever she gets up as well. Current Medications Current Medications Current Medications: Current Medications Generic Name Dose Route Start Last Admin Trade Name Freq PRN Reason Stop Dose Admin Acetaminophen 650 mg 03/30/24 13:26 03/31/24 11:39 Acetaminophen 325 Mg Tablet PO 650 mg Q4HR PRN Administration Pain 1 to 4, or Fever Hydrocodone Bitart/Acetaminophen 1 tab 03/30/24 13:26 04/01/24 08:05 Hydrocod/Acetam 5/325 Mg Tablet PO 1 tab Q4HR PRN Administration Pain 5 to 7 Albuterol/Ipratropium 3 ml 03/30/24 18:52 03/31/24 21:05 Ipratropium/Albuterol 3 Ml Neb INH 3 ml RTQ4H PRN Administration Wheezing Azithromycin 500 mg 03/31/24 09:00 04/01/24 08:04 Azithromycin 250 Mg Tablet PO 500 mg DAILY SIDNEY Administration Benzonatate 100 mg 03/31/24 03:50 04/01/24 08:04 Benzonatate 100 Mg Capsule PO 100 mg TID PRN Administration Cough Ceftriaxone Sodium 1 gm 03/31/24 09:00 04/01/24 08:04 Ceftriaxone 1 Gm Vial IVP 1 gm DAILY SIDNEY Administration Guaifenesin 600 mg 03/31/24 09:00 04/01/24 08:05 Guaifenesin 600 Mg Tablet PO 600 mg BID SIDNEY Administration Heparin Sodium (Porcine) 5,000 unit 03/30/24 21:00 04/01/24 08:05 Heparin 5,000 Unit/Ml Vial SUBQ 5,000 unit BID SIDNEY Administration Multivitamins/Minerals 1 tab 03/31/24 17:00 04/01/24 08:04 Multivitamin W/Minerals Tablet PO 1 tab DAILYWM SIDNEY Administration Ondansetron HCl 4 mg 03/30/24 13:26 Ondansetron Odt 4 Mg Tablet TL Q6HR PRN Nausea / Vomiting Prednisone 40 mg 03/31/24 13:00 04/01/24 08:05 Prednisone 20 Mg Tablet PO 40 mg DAILYWM SIDNEY Administration Sodium Chloride 10 ml 03/30/24 13:26 Sodium Chloride Flush 0.9% 10 Ml Syringe IVP PRN PRN NEEDED PER PROVIDER ORDERS Sodium Chloride 10 ml 03/30/24 17:00 04/01/24 08:05 Sodium Chloride Flush 0.9% 10 Ml Syringe IVP 10 ml 0100,0900,1700 SIDNEY Administration Sterile Water 10 ml 03/31/24 09:00 04/01/24 08:04 Water For Injection,Sterile 10 Ml Vial MC 10 ml DAILY SIDNEY Administration Objective Vital Signs/Intake & Output Reviewed Vital Signs: Yes Vital Signs: Vital Signs x48h Temp Pulse Pulse Resp BP Pulse Ox 04/01/24 11:42 96 04/01/24 08:33 97.9 F 77 20 156/81 H 94 Intake & Output: Intake & Output 03/29/24 03/30/24 03/31/24 04/01/24 23:59 23:59 23:59 23:59 Intake Total 1500 / 1500 2140 / 2140 240 / 240 Output Total 400 / 400 Balance 1500 / 1500 1740 / 1740 240 / 240 Weight (kg) 81.1 kg 82.5 kg Objective General Appearance: positive No acute distress and Alert; negative Anxious Eyes Bilateral: positive Normal inspection, PERRL and EOMI ENT: positive ENT inspection nml, Pharynx nml and No signs of dehydration Neck: positive Nml inspection, Thyroid nml, No JVD and Trachea midline Respiratory: positive Chest non-tender, No respiratory distress, Wheezes (improved, expiratory, diffuse, good air movement) and Rhonchi; negative Rales Cardiovascular: positive Regular rate & rhythm, No murmur and No gallop Abdomen: positive Non-tender, No organomegaly and No distention; negative Tenderness, Guarding, Rebound or Hepatomegaly Back: positive Nml inspection; negative CVA tenderness (R) or CVA tenderness (L) Skin: positive Color nml, No rash, Warm and Dry Extremities: positive Non-tender, Full ROM, Nml appearance and No pedal edema Neurologic/Psychiatric: positive Oriented x3 and Mood/affect nml Lab Results 04/01/24 05:26 04/01/24 05:26 Other Labs: Lab Results x24hrs 04/01/24 Range/Units 05:26 WBC 11.9 H (4.8-10.8) x10^3/uL RBC 3.99 L (4.20-5.40) 10^6/uL Hgb 11.6 L (12.0-16.0) g/dL Hct 35.2 L (37.0-47.0) % MCV 88.2 (81.0-99.0) fL MCH 29.1 (27.0-31.0) pg MCHC 33.0 (32.0-36.0) g/dL RDW 14.1 (12.0-15.0) % Plt Count 241 (130-450) 10^3/uL MPV 10.9 H (7.9-10.8) fL Sodium 137 (135-145) mmol/L Potassium 4.6 H (3.5-4.5) mmol/L Chloride 106 (101-111) mmol/L Carbon Dioxide 25 (21-32) mmol/L Anion Gap 6.0 (6-13) BUN 31 H (6-20) mg/dL Creatinine 0.8 (0.6-1.3) mg/dL Estimated GFR (MDRD) 72 L (>89) Glucose 175 H (74-104) mg/dL Calcium 9.0 (8.5-10.3) mg/dL Magnesium 2.4 H (1.7-2.3) mg/dL Diagnostic Imaging Diagnostic Imaging Results: positive Final report reviewed Sepsis Event Note (H) Evaluation Current Stage of Sepsis: Sepsis Possible source of Sepsis: positive Pulmonary Sepsis Criteria Sepsis Criteria: Recorded Heart Rate greater than 90 bpm, Recorded Respiratory Rate greater than 20, Respiratory: Increasing oxygen requirements and WBC count greater than 12,000 or less than 4000 Assessment/Plan Problem List (1) Community acquired pneumonia: Impression: Chest x-ray and CT shows infiltrates in right upper lobe and left lower lobe. Patient was requiring 2 L, now weaned down to room air. Continue Rocephin and azithromycin at this time. May need another day of IV antibiotics due to worsening symptoms, leukocytosis. High suspicion for undiagnosed COPD with extensive smoking history. Transition to oral prednisone today. Continue DuoNebs as needed. Advised to abstain from tobacco use. Patient is significantly deconditioned. She gets dizzy when she stands up. PT/OT did evaluate the patient, and recommended home with family assist when medically stable. Qualifiers: Laterality: unspecified laterality Qualified Code(s): J18.9 - Pneumonia, unspecified organism (2) Pleuritic chest pain: Impression: Patient with pleuritic chest pain, worse with deep inspiration. Troponin, EKG ordered to rule out cardiac cause. Start with codeine scheduled Robitussin. (3) Sepsis: Impression: Tachycardia resolved. Patient does have worsening leukocytosis, but it is likely due to steroid use. Will continue to monitor. Qualifiers: Sepsis acute organ dysfunction status: without acute organ dysfunction Sepsis type: sepsis due to unspecified organism Qualified Code(s): A41.9 - Sepsis, unspecified organism (4) Acute kidney injury: Impression: Resolved with IVF. Continue to monitor. (5) Tobacco dependence: Impression: Continue nicotine patch. (6) Methamphetamine use: Impression: Advised to abstain from methamphetamine use.
[2024-04-01] MEDS: guaiFENesin/CODEINE 5 ML UDC PO SCH (15:06)
[2024-04-01] MEDS: IPRATROPIUM/ALBUTEROL 3 ML NEB INH SCH (15:49)
[2024-04-02 06:09] VITALS: TEMP 98.1
[2024-04-02 08:24] VITALS: BP 157/66; O2SAT 92
--- NOTE | 2024-04-02 09:20 | Discharge Summary ---
Discharge Summary Admit Date: 03/30/24 Discharge Date: 04/02/24 Discharging Provider: Dr. Dev Cai Primary Care Provider: Cherise Spaulding Code Status: Attempt Resuscitation Discharge Facility Name: Home DIAGNOSES Admission Diagnoses: Community acquired ammonia Sepsis Acute kidney injury Tobacco dependence Methamphetamine use Discharge Diagnoses with Status of Each Condition: Community-acquired pneumoniapatient will complete 2 more days of Augmentin at home. Received 3 days of Rocephin and azithromycin. Likely component of undiagnosed COPD with active tobacco use, and longstanding tobacco use. Continue albuterol inhaler as needed, prednisone for 2 more days to complete 5- day course of steroids as well. Advised to follow-up with her primary care provider to get pulmonary function test done. Sepsisresolved. Acute kidney injuryresolved. Tobacco dependenceadvised to abstain from cigarette use if possible due to worsening COPD. Methamphetamine useadvised to abstain. HPI History of Present Illness: Per MOE Hernandez: Nancy is a 68-year-old female who presents to ED today due to progressively worsening cough, shortness of breath, and fatigue. Information is provided by Nancy, her adult son Isela, and her boyfriend Medhat. Some information from son/boyfriend is contradictory to her initial reports, but she typically agrees with their information more than what she initially said. She is pleasant, alert and oriented x4, talkative, and cooperative. She appears uncomfortable due to being excessively warm and back discomfort due to hospital bed. When asked why she is here at the ED, she pointed to her son to indicate that he brought her. Her son reports finding her "on the toilet for an hour," slumped over, lethargic, confused, and generally "out of it". Both deny loss of consciousness and report she was awake, with eyes open and able to communicate when he found her, but she was unable to stand on her own due to weakness. He states he had to assist her with standing and with putting her underpants back on. She denies that she was on the toilet for that long, but her son insists the duration was "at least" one hour. She states she was only urinating, did not have or attempt to have a bowel movement, no nausea or vomiting, and no abdominal cramping or discomfort. She states she is here because she has been "sick for a while". She describes this as "hardly moving", decreased appetite, coughing, and just "feeling bad." She has had progressively worsening cough, shortness of breath, disequilibrium, and fatigue for several months. She is unable to pinpoint exactly how long, but does note symptoms are worsening. She states the last 1 week has been especially bad, with increased difficulty breathing, cough with phlegm, and fever. Her son reports fever of 101.5F last night. She has chronic sinus problems and uses a generic nasal spray daily, but does not know what this medication is. She notes she has not needed any nasal spray for 1 week, her sinuses/nose have been uncharacteristically clear. She describes her disequilibrium as "veering to the right" for the last 2 months. She also has chronic back pain, left sided low back pain with sciatica, and right shoulder pain. She denies vertigo, hearing change, headache, hemoptysis, sinus pain or pressure, new or changing myalgias or arthralgias. She describes her mood as "grumpy" and laughingly says she has been grumpy her entire life. She also states she is scared and worrying a lot about her health, especially due to her PCP's recommendation for low-dose CT screening for lung cancer due to smoking history. She is very concerned that she may have cancer or other illness because this screening exam was recommended. She states she usually "sleeps hard" but lately has been sleeping 2-3 hours, waking up, then sleeping for 2-3 more hours. She is unsure why she is waking at night. She states she has a long history of depression and anxiety, which she does not currently take medication for. She denies cardiac or pleuritic chest pain, however she does have musculoskeletal chest pain due to her dog tugging at its leash about 1 week ago. The dog pulled its leash which jolted her right arm, aggravating her chronic right shoulder pain and causing chest muscle pain. She denies any changing or new chest pain, and denies pain radiation to arms or neck. She is a heavy smoker, 2 packs per day since age 17, but reports she stopped smoking 2-3 days ago due to increased coughing and difficulty breathing. She drinks an average of 2-3 [place] Lemonades per night. She denies marijuana use in any form. She initially denies illicit drug use, but upon correction by her boyfriend, admits to smoking methamphetamine with a pipe as needed for depression, anxiety, and pain. It is unclear how frequently she does this. She admits to smoking methamphetamine last night due to feeling "shitty and bad." Upon clarification she explains she feels bad due to chronic depression, anxiety, and pain, and states she attempts to self medicate with substances. She lives in [place] with her adult son Isela and grandson Carson, along with their dogs. Her adult daughter Drew lives in [place]. It is unclear if her boyfriend Medhat lives with them as well, or if he just stays over frequently. 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 She reports only taking oxycodone-acetaminophen once or twice daily due to chronic back pain. She has been taking OTC ibuprofen for the last few days per her son's advice. She denies any other prescription or over the counter medications. Her PCP is Dr. Gant at the [facility] in [place], [place]. CONSULTS | PROCEDURES Consultations: Physical therapy, occupational therapy, respiratory therapy Procedures: CXR, CT Chest HOSPITAL COURSE Hospital Course: Patient is a 68-year-old female with a longstanding history of tobacco use who presented with worsening dyspnea, cough, fevers, chills. Chest x-ray and chest CT showed multifocal pneumonia. She was started on IV antibiotics, Rocephin and azithromycin. Initially, she was on 2 L, this was weaned down. Oxygen desaturation study was done, and she did well. She will not require home oxygen. She was advised to speak with her primary care provider about a few things: #1, she needs to get repeat CT scan done in 3 months to assess for resolution of pneumonia, and rule out any underlying masses. #2, she needs to go in for pulmonary function testing to diagnose likely COPD. She was deemed stable for discharge, with 2 more days of prednisone, as well as 2 more days of Augmentin. She was advised to follow-up closely with her primary care provider. ALLERGIES Allergies Allergy/AdvReac Type Severity Reaction Status Date / Time erythromycin base Allergy Mild Rash Verified 03/30/24 03:51 (Erythromycin Base) codeine AdvReac Unknown Verified 03/30/24 03:51 MEDICATIONS Ambulatory Orders Medication Instructions Recorded Confirmed hydrocodone 5 mg-acetaminophen 325 1 - 2 tab PO Q6H PRN Pain #15 tabs 06/19/23 03/30/24 mg tablet albuterol sulfate 90 mcg/actuation 1 inh inhalation QID PRN shortness 04/02/24 aerosol inhaler (Ventolin HFA) of breath or wheezing #8.5 grams amoxicillin 875 mg-potassium 1 tab PO BID #4 tabs 04/02/24 clavulanate 125 mg tablet prednisone 20 mg tablet 40 mg (2 x 20 mg) PO DAILYWM #2 04/02/24 tabs PHYSICAL EXAM AT DISCHARGE General Appearance: positive No acute distress and Alert; negative Anxious Eyes Bilateral: positive Normal inspection, PERRL, EOMI and No lid inflammation ENT: positive ENT inspection nml, Pharynx nml and No signs of dehydration Neck: positive Nml inspection, Thyroid nml and No JVD Respiratory: positive Chest non-tender, No respiratory distress, Breath sounds nml and Rhonchi (mild bibasilar); negative Wheezes or Rales Cardiovascular: positive Regular rate & rhythm, No murmur and No gallop; negative Systolic murmur or Diastolic murmur Peripheral Pulses: positive 2+ Abdomen: positive Non-tender and No distention; negative Tenderness, Guarding, Rebound, Hepatomegaly, Splenomegaly or Mass Back: positive Nml inspection; negative CVA tenderness (R) or CVA tenderness (L) Skin: positive Color nml, No rash, Warm and Dry Extremities: positive Non-tender, Full ROM, Nml appearance and No pedal edema Neurologic/Psychiatric: positive Oriented x3 and Mood/affect nml LABS 04/01/24 05:26 04/01/24 05:26 DIAGNOSTIC IMAGING Diagnostic Imaging Results: Final report reviewed SEPSIS Current Stage of Sepsis: Resolved Possible source of Sepsis: Pulmonary Sepsis Criteria: Recorded Heart Rate greater than 90 bpm, Recorded Respiratory Rate greater than 20, Respiratory: Increasing oxygen requirements and WBC count greater than 12,000 or less than 4000 QUALITY (Female Hip Fx Only) Was patient sent home on osteoporosis medication?: No FOLLOW UP Follow Up: Follow up with primary care provider in 1-2 weeks. TIME SPENT Time Spent in Discharge (Minutes): 35 Discharge Plan Discharge Patient Disposition: Home, Self Care Condition: Fair Prescriptions: New prednisone 20 mg Tablet 40 mg PO DAILYWM Qty: 2 0RF amoxicillin-pot clavulanate 875-125 mg tablet 1 tab PO BID Qty: 4 0RF albuterol sulfate [Ventolin HFA] 90 mcg/actuation HFA aerosol inhaler 1 inh inhalation QID PRN (Reason: shortness of breath or wheezing) Qty: 8.5 2RF Continued hydrocodone-acetaminophen 1 TAB tablet 1 - 2 tab PO Q6H PRN (Reason: Pain) Qty: 15 0RF Activity Restrictions: Activity as Tolerated Diet: Regular Health Concerns: You came in because you were having some shortness of breath. You were found to have a pneumonia. With your extensive smoking history, I am also worried that you may have some underlying COPD. I would like for you to continue two more days of steroids, as well as antibiotics on discharge. I have also sent an albuterol inhaler to the pharmacy, which you can use as needed. Please continue to take Tylenol [id number] if you continue to have pain with coughing. Please follow-up with your primary care provider in the next week or 2 to follow-up on your symptoms. Please let her know that you need a repeat CT scan of your lungs done in 3 months to ensure resolution, and rule out any underlying processes. Please also let her know that you should get some PFTs or lung testing done to see if you have COPD. Please feel free to return if you have worsening shortness of breath, chest pain, fevers, chills, etc. We are glad you are feeling better, thank you for allowing us to take care of you. Print Language: Yakut Patient Instructions: Pneumonia Ch, Pneumonia Dc Stand Alone Forms: PCP List Follow-up Care: Cherise Spaulding ARNP [Primary Care Provider] -
== END 2024-04-02 11:20 | disposition home or self-care (01) | DRG 871 ==
LOC: ED 22:26 → MS3 22:26
PROVIDERS: ADMIT Internal Medicine; ATTEND Internal Medicine
DX: X50.9XXA Other and unspecified overexertion or strenuous movements or postures, initial encounter; Z68.34 Body mass index [BMI] 34.0-34.9, adult; G89.29 Other chronic pain; M25.511 Pain in right shoulder; E66.9 Obesity, unspecified; F17.210 Nicotine dependence, cigarettes, uncomplicated; M54.42 Lumbago with sciatica, left side; R00.0 Tachycardia, unspecified; Y93.K1 Activity, walking an animal; R94.31 Abnormal electrocardiogram [ECG] [EKG]; R07.89 Other chest pain; J44.0 Chronic obstructive pulmonary disease with (acute) lower respiratory infection; A41.9 Sepsis, unspecified organism; Z20.818 Contact with and (suspected) exposure to other bacterial communicable diseases; J18.9 Pneumonia, unspecified organism; Z20.828 Contact with and (suspected) exposure to other viral communicable diseases; I48.91 Unspecified atrial fibrillation; N17.9 Acute kidney failure, unspecified; Z20.822 Contact with and (suspected) exposure to COVID-19